=== PATIENT | male | born 1930 | race Caucasian/White ===

== ENCOUNTER 2018-09-24 17:29 | Inpatient (IN) | payer MEDICARE, OTHER ==
[~2018-09-24] VITALS: Ht 177.8 cm; Wt 68.0 kg
[2018-09-24] MEDS ORDERED: ASPIRIN81 MG PO (19:03)
[2018-09-24] MEDS ORDERED: CLARITIN 10 MG10 MG PO (19:04)
[2018-09-24] MEDS ORDERED: LEXAPRO5 MG PO (19:04)
[2018-09-24] MEDS ORDERED: NORVASC5 MG PO (19:05)
[2018-09-24] MEDS ORDERED: LISINOPRIL-HCT1 EAC4 PO (19:05)
[2018-09-24 19:08] LABS: BASOPHILS 0.4 % (0-2); EOSINOPHILS 1.3 % (0-7); HEMATOCRIT 42.3 % (42.0-54.0); HEMOGLOBIN 15.3 g/dL (13.5-17.5); IMMATURE GRANULOCYTES 0.4 % (0-5); LYMPHOCYTES 13.3 % (15-50); MCH 32.1 pg (26.0-34.0); MCHC 36.2 g/dL (31.0-37.0); MCV 88.7 fL (80.0-100.0); MEAN PLATELET VOLUME 9.6 fL (7.4-10.4); MONOCYTES 6.8 % (2-11); NEUTROPHILS 77.8 % (40-80); PLATELET COUNT 163 10x3/uL (130-400); RBC 4.77 10x6/uL (4.20-6.10); RDW 13.7 % (11.5-14.5); WBC 8.6 10x3/uL (4.8-10.8)
[2018-09-24 19:28] LABS: ALBUMIN 3.5 g/dL (3.4-5.0); ALKALINE PHOSPHATASE 75 U/L (46-116); ALT (SGPT) 24 U/L (10-68); BILIRUBIN - TOTAL 0.25 mg/dL (0.2-1.3); CALC OSMOLALITY 284 mosm/kg (275-300); CALCIUM 9.1 mg/dL (8.5-10.1); CARBON DIOXIDE 30.7 mmol/L (21.0-32.0); CHLORIDE - SERUM 102 mmol/L (98-107); CREATININE - SERUM 1.5 mg/dL (0.6-1.3); GLUCOSE 110 mg/dL (74-106); POTASSIUM - SERUM 4.1 mmol/L (3.5-5.1); SODIUM 139 mmol/L (136-145); UREA NITROGEN 29 mg/dL (7-18); eGFR NON AFRICAN AMERICAN 47 mL/min (90-120)
[2018-09-24 19:34] LABS: CKMB 1.2 U/L (0.0-3.6); CREATINE KINASE 61 UL (21-232); MAGNESIUM - SERUM 2.1 mg/dL (1.8-2.4); TROPONIN-I < 0.017 ng/mL (0.000-0.060)
[2018-09-24 19:51] LABS: APTT 29.6 SECONDS (22.8-39.4)
--- NOTE | 2018-09-24 20:15 | NUR ---
NURSE ATTEMPTED TO IN AND OUT CATH PT PER EDP, NO OUTPUT. PT SELF CATHS AT HOME. PT ATTEMPTED TO IN AND OUT CATH WITH A IN AND OUT CATH PROVIDED BY NURSE. WITH NO SUCCESS. BLADDER SCANNER USED TO SEE IF PT WAS RETAINING. SCANNER SHOWED 764 ML. EDP NOTIFED. STATES TO IN AND OUT PT AGAIN. PT STATES HE HAS ONE OF HIS HOME CATHS WITH HIM. PT USED HIS PERSONAL IN AND OUT CATH WITH SUCCESS. OUTPUT OF 650 ML.
[2018-09-24 20:24] LABS: INR 1.04 (0.85-1.17); PROTIME 13.1 SECONDS (11.6-15.0)
[2018-09-24] MEDS ORDERED: BAYER ASPIRIN325 MG PO (22:23)
[2018-09-25] VITALS (7 sets, daily range): BP systolic 129–171; BP diastolic 58–72; Ht 177.8 cm; Wt 68.0 kg
[2018-09-25 00:56] LABS: CKMB 1.4 U/L (0.0-3.6); CREATINE KINASE 75 UL (21-232); TROPONIN-I < 0.017 ng/mL (0.000-0.060)
--- NOTE | 2018-09-25 01:04 | NUR ---
PT UNABLE TO SLEEP. IN ROOM. PT CAME TO NURSES STATION AND IS SITTING DOWN. PT ASKING ABOUT CIGARETTE MACHINE. WANTING TO SMOKE A CIGG. EXPLAINED TO PT THAT HE IS NOT ALLOWED TO LEAVE HOSPITAL WHILE ADMITED. AND EXPLAINED POC AND NEED FOR OBSERVATION OF SYNCOPY. PT VERBALIZED UNDERSTANDING BUT IS STILL TALKING ABOUT WANTING TO FIND CIGGS. WILL CONTINUE TO EXPLAIN PT DANGERS OF LEAVING AND SMOKING. PT BEDLOW AND CALL LIGHT IN REACH. WILL CPOC
--- NOTE | 2018-09-25 03:36 | NUR ---
PT CAME OUT TO NURSES STATION AND SET AT CHAIR BY NURSES. PT STATES HOSPITAL IS [facility]. REORIENTED PT. PT LAUGHED EACH QUESTION NURSE ASKED REGARDING ORIENTATION. ASKED PT YEAR. PT STATES 2017, PT STATED 2019 EARLIER. REORIENTED PT AND PT SAID. I KNOW, I WAS JUST TESTING YOU. PT VERBALIZED THAT ADMIT IS FOR "PASSING OUT" AFTER PT SET UP FOR A WHILE PT WENT BACK TO ROOM, WHEN OPENING THE DOOR THE WAS ON HER WAY OUT TO FIND HIM. PT BACK INTO BED. NO S/S OF DISTRESS. BEDLOW AND CALL LIGHT IN REACH. WILL CPOC
--- NOTE | 2018-09-25 08:01 | NUR ---
ALERT AND ORIENTED. TELEMERTY SHOWS SB 53. LEFT AC SL. UP AB [place]. AT BEDSIDE. PT DOES SELF CATH HIMSELF. NO NEEDS VOICED. SR UP WITH CALL LIGHT IN REACH
[2018-09-25 08:10] LABS: CKMB 1.3 U/L (0.0-3.6); CREATINE KINASE 63 UL (21-232)
[2018-09-25 08:12] LABS: TROPONIN-I < 0.017 ng/mL (0.000-0.060)
--- NOTE | 2018-09-25 11:10 | NUR ---
I have reviewed this patient and I concur with the Shift Assessment completed by the Licensed Practical Nurse today this shift.
[2018-09-25 11:32] LABS: CREATINE KINASE 67 UL (21-232); TROPONIN-I < 0.017 ng/mL (0.000-0.060)
--- NOTE | 2018-09-25 11:35 | NUR ---
PT CONFUSED AT PRESENT TIME. AWAITING TO RETURN. NO NEEDS NOTED
[2018-09-25 16:25] LABS: APPEARANCE HAZY (CLEAR); BILIRUBIN NEGATIVE (NEGATIVE); COLOR YELLOW (YELLOW); GLUCOSE NEGATIVE (NEGATIVE); KETONE NEGATIVE (NEGATIVE); NITRITE NEGATIVE (NEGATIVE); PROTEIN 1+ mg/dL (NEGATIVE); UROBILINOGEN NORMAL (NORMAL)
[2018-09-25 16:26] LABS: WHITE CELLS - URINE >50 /hpf (0-5)
[2018-09-25 16:27] LABS: BACTERIA MANY /hpf (NONE SEEN); EPITHELIAL CELLS NSEEN /hpf (0-5); RED CELLS - URINE 0-5 /hpf (0-5)
--- NOTE | 2018-09-25 19:15 | NUR ---
RECEIVED REPORT, WILL ASSUME CARE OF PT, PT IS WALKING IN HALLWAY WITH , WILL CONTINUE PLAN OF CARE
--- NOTE | 2018-09-25 22:17 | NUR ---
PT IS RESTING, BED IS LOW, SRX2, CALL LIGHT IN REACH, AT BEDSIDE, WILL CONTINUE PLAN OF CARE
[2018-09-26] VITALS: BP 137/71; BP 163/73; BP 183/57
--- NOTE | 2018-09-26 01:12 | NUR ---
SLEEPING, AT BEDSIDE, CALL LIGHT IN REACH, WILL CONTINUE PLAN OF CARE
--- NOTE | 2018-09-26 02:18 | NUR ---
I have reviewed this patient and I concur with the Shift Assessment completed by the Licensed Practical Nurse today this shift.
[2018-09-26 04:00] VITALS: BP 123/54
[2018-09-26 05:03] LABS: BASOPHILS 0.2 % (0-2); HEMATOCRIT 39.4 % (42.0-54.0); HEMOGLOBIN 14.1 g/dL (13.5-17.5); IMMATURE GRANULOCYTES 0.2 % (0-5); LYMPHOCYTES 25.2 % (15-50); MCH 31.5 pg (26.0-34.0); MCHC 35.8 g/dL (31.0-37.0); MCV 87.9 fL (80.0-100.0); MEAN PLATELET VOLUME 9.7 fL (7.4-10.4); NEUTROPHILS 64.4 % (40-80); PLATELET COUNT 191 10x3/uL (130-400); RBC 4.48 10x6/uL (4.20-6.10); RDW 13.6 % (11.5-14.5); WBC 8.4 10x3/uL (4.8-10.8)
[2018-09-26 05:18] LABS: ANION GAP 14.1 mmol/L (8-16); CARBON DIOXIDE 24.9 mmol/L (21.0-32.0); CREATININE - SERUM 1.3 mg/dL (0.6-1.3)
--- NOTE | 2018-09-26 07:10 | NUR ---
PT WALKING IN HALLWAY. LED BACK TO ROOM BY NURSE. NO DISTRESS NOTED.
--- NOTE | 2018-09-26 08:00 | NUR ---
ASSESSMENT DONE. UPON MED PASS NO IV NOTED. STATED SHE DIDNT KNOW WHAT HAPENED TO IT BUT SAW THE CATHETER LAYING ON THE BED SIDE TABLE THIS MORNING WHEN SHE WOKE UP.
[2018-09-26 09:12] VITALS: BP 126/70
[2018-09-26 11:37] VITALS: BP 158/50
--- NOTE | 2018-09-26 12:36 | NUR ---
I have reviewed this patient and I concur with the Shift Assessment completed by the Licensed Practical Nurse today this shift.
--- NOTE | 2018-09-26 15:25 | NUR ---
DC GIVEN TO PT. PT DC VIA PERSONAL CAR.
--- NOTE | 2018-09-28 09:35 | MORECARE ---
CASE MANAGEMENT DISCHARGE SUMMARY PATIENT: ANTONETTE MORGAN UNIT: [id number] ADM DATE: 09/25/18 AGE: 87 : 32 SEX: M ROOM/BED: D.2120 AUTHOR: TIFFANY LOVE PHYSICIAN: REFERRING PHYSICIAN: BLANQUITA FERRARI MD DATE OF SERVICE: 09/28/18 Discharge Plan Patient Name: ANTONETTE MORGAN [facility] [facility] 1930 Planned Disposition: Home Anticipated Discharge Date: 09/26/18 Discharge Date: 09/26/2018 Expected LOS: 1 Initial Reviewer: [email or web address] Initial Review Date: 09/28/2018 Generated: 09/28/18 10:35 am Patient Name: ANTONETTE MORGAN Page [id number] at 0935 All edits/amendments must be made on the electronic document DICTATION DATE: 09/28/18934 SUPERVISOR BOATBUILDERS WOOD: PING 09/28/18 09 RPT#: [id number] DC DATE:09/26/18 STATUS: DIS IN [facility] [address] [facility] [place] [address] END OF REPORT
--- NOTE | 2018-09-28 15:06 | EC ---
PATIENT:ANTONETTE MORGAN DATE OF SERVICE: 09/24/18 SEX: M MEDICAL RECORD: [id number] DATE OF : 34 LOCATION:D.M2 D.212 AGE OF PATIENT: 87 ADMISSION DATE: 09/25/18 REFERRING PHYSICIAN: INTERPRETING PHYSICIAN: MISTY DODGE MD ECHOCARDIOGRAM REPORT ECHO CHARGES 4 ECHO COMPLETE Date: 09/25/18 CLINICAL DIAGNOSIS: SYNCOPE ECHOCARDIOGRAPHIC MEASUREMENTS (adult normal given) AC root (d.<3.7cm) 3.0 cm LV Septum d (<1.2 cm> 1.5 cm Valve Excursion 1.8 cm LV Septum (systole) 2.0 cm Left Atria (s.<4.0cm> 3.2 cm LVPW d(<1.2cm) 1.3 cm RV (d.<2.3cm) 2.6 cm LVPW (sytole) 1.8 cm LV diastole(<5.6CM) 6.5 cm MV E-F(>70mm/sec) cm LV systole 4.5 cm LVOT Diameter 1.8 cm MV exc.(>10mm) cm Est.ejection fraction (50-75%) % DOPPLER: LVIT cm/sec A 60.0 cm/sec E 42.0 cm/sec LA cm/sec RVSP 35.0 mmHg LVOT 113 cm/sec AOP1/2T m/s Asc. Ao 210 cm/sec RVOT 64.0 cm/sec RA cm/sec PA 102 cm/sec AV Gradient Peak 18.0 mmHg AV Mean 8.5 mmHg AV Area 1.1 cm MV Gradient Peak 5.5 mmHg MV Mean 1.4 mmHg MV Area cm COMMENTS: Network Technical Analyst: Gabriel GIBSONOE Human Services Supervisor: 3 Dr. Mcgraw TAPE# PACS Pericardial Effusion N DATE OF SERVICE: Adequate 2D, color flow, spectral Doppler, and M-Mode. LVH is present. LV internal dimension is normal. Wall motion is normal. EF is greater than or equal to 55%. Aortic valve sclerosis without stenosis on Doppler interrogation. The left atrium is normal at 3.2 cm. Mitral valve shows no prolapse. Trace MR. Right-sided chambers are grossly normal. Trace TR. TRANSINT:[id number] Voice Confirmation ID: [id number] DOCUMENT ID: [id number] ECHOCARDIOGRAM REPORT [id number] ANTONETTE MORGAN,MISTY Maddox MD at 1506 CC: [id number] DICTATION DATE: 09/25/18 1154 ACCOUNT ASSOCIATE: 09/25/18 1231 DIS IN 09/26/18 [facility] [address] [facility] [place] [address]
== END 2018-09-26 15:33 | disposition home or self-care (01) | DRG 312 ==
LOC: EDBD 17:29 → D.ER 17:29 → D.M2 19:24 → OBSVTIME 19:24 → D.M2 19:24
PROVIDERS: Emergency Medicine; Family Medicine; ADMIT Internal Medicine Nephrology; ATTEND Internal Medicine Nephrology
DX: R55 Syncope and collapse (principal); N17.9 Acute kidney failure, unspecified; F17.203 Nicotine dependence unspecified, with withdrawal; R00.1 Bradycardia, unspecified; R33.9 Retention of urine, unspecified; I10 Essential (primary) hypertension; F32.9 Major depressive disorder, single episode, unspecified; N40.0 Benign prostatic hyperplasia without lower urinary tract symptoms

== ENCOUNTER 2019-01-26 08:00 | Day surgery (SDC) | payer MEDICARE, OTHER ==
[~2019-01-26] VITALS: Ht 180.3 cm; Wt 65.3 kg
[~2019-01-26 08:00] MED LIST: ASPIRIN81 MG PO; BAYER ASPIRIN325 MG PO; CLARITIN 10 MG10 MG PO; LEXAPRO5 MG PO; LISINOPRIL-HCT1 EAC4 PO; NORVASC5 MG PO
[2019-01-26 09:01] LABS: ANION GAP 8.9 mmol/L (8-16); CALCIUM 9.1 mg/dL (8.5-10.1); CARBON DIOXIDE 31.3 mmol/L (21.0-32.0); CREATININE - SERUM 1.4 mg/dL (0.6-1.3); POTASSIUM - SERUM 4.2 mmol/L (3.5-5.1)
[2019-01-26 09:06] LABS: BASOPHILS 0.7 % (0-2); EOSINOPHILS 3.8 % (0-7); HEMATOCRIT 40.4 % (42.0-54.0); HEMOGLOBIN 13.9 g/dL (13.5-17.5); IMMATURE GRANULOCYTES 1.1 % (0-5); LYMPHOCYTES 18.9 % (15-50); MCH 33.4 pg (26.0-34.0); MCHC 34.4 g/dL (31.0-37.0); MCV 97.1 fL (80.0-100.0); MEAN PLATELET VOLUME 9.7 fL (7.4-10.4); MONOCYTES 7.8 % (2-11); NEUTROPHILS 67.7 % (40-80); RBC 4.16 10x6/uL (4.20-6.10); RDW 13.6 % (11.5-14.5)
[2019-01-26 09:38] LABS: PLATELET COUNT 292 10x3/uL (130-400)
[2019-01-26 10:13] VITALS: BP 122/62; Ht 180.3 cm; Wt 65.3 kg
[2019-01-26] MEDS ORDERED: HYDROCODON-ACE1 EA10 PO (11:54)
--- NOTE | 2019-01-26 16:46 | NUR ---
1640 DR. BISHOP REACHED VIA PHONE NOTIFIED OF FAINTINT EPISODE AND Gracie MULLINS RELEASE HOME WCM.
--- NOTE | 2019-01-26 16:52 | NUR ---
1650 ROOM CHECK, PT RESTING COMFORTABLE IN BED, AT SIDE, A/A STATES I AM GOING HOME.
--- NOTE | 2019-01-28 13:49 | OP ---
PATIENT NAME: ANTONETTE MORGAN MEDICAL RECORD: [id number] :34 LOCATION:[facility] ADMISSION DATE: SURGEON: PROSPER BISHOP MD DATE OF OPERATION: 01/26/2019 PREOPERATIVE DIAGNOSES: 1. Bilateral inguinal hernias. 2. Hypertension. POSTOPERATIVE DIAGNOSES: 1. Bilateral inguinal hernias. 2. Hypertension. PROCEDURE: Bilateral inguinal hernia repairs with medium PHS mesh. SURGEON: Prosper Bishop MD REPORT OF PROCEDURE: The patient's bilateral groins were prepped and draped in sterile fashion. We approached the right side first. An oblique incision was made above the inguinal ligament and electrocautery was used to dissect through the subcutaneous tissues to the external oblique fascia. This fascia was opened up to the external ring with electrocautery. The ilioinguinal nerve was found and high ligated. We elevated the spermatic cord and a Haven was placed around it. The patient had a small direct hernia defect. This was opened up and we freed up the preperitoneal space of Retzius. A medium PHS mesh was inserted and sutured down on all 4 sides using interrupted 0 Vicryl. We irrigated out the wound and assured there was no sign of any bleeding. The external oblique fascia was closed with running 2-0 Vicryl and the Shiloh's was closed with interrupted 3-0 Vicryl. A total of 8 mL of 1% lidocaine with epinephrine was infused into the tissues and the skin was closed with running subcutaneous 5-0 Monocryl. We approached the left side and again an oblique incision was made above the inguinal ligament. Electrocautery was used to dissect through the subcutaneous tissues to the external oblique fascia. This fascia was opened up to the external ring using electrocautery. The spermatic cord was elevated and a Haven was placed around it. Again, the ilioinguinal nerve was found and high ligated. An indirect hernia defect was found. This was freed up from the spermatic cord and pushed back down in the preperitoneal space. We then opened up the inguinal floor and opened the preperitoneal space of Retzius. A medium PHS mesh was inserted and sutured down on all 4 sides using interrupted 0 Vicryls. The wounds were then irrigated out with normal saline and then inspected for any bleeding. The external oblique fascia was closed with running 2-0 Vicryl, Shiloh's was closed with interrupted 3-0 Vicryl and the skin was closed with running subcutaneous 5-0 Monocryl. COMPLICATIONS: None. CONDITION: Stable. ANESTHESIA: General endotracheal and local. BLOOD LOSS: Minimal. TRANSINT:[id number] Voice Confirmation ID: [id number] DOCUMENT ID: [id number] OPERATIVE REPORT [id number] ANTONETTE MORGAN, PROSPER DAVID at 1349 CC: ZANE CASTANEDA MD and LINDA MANNING [id number] DICTATION DATE: 01/26/19 1200 INSULATION BOARD BACK TENDER: 01/26/19 1211 [facility] SDC 01/26/19 [facility] [address] [place] [address]
== END 2019-01-26 18:45 | disposition home or self-care (01) ==
LOC: D.OPS 08:00 → D.PAN 12:15 → D.OPS 12:15
PROVIDERS: ATTEND Surgery
DX: K40.20 Bilateral inguinal hernia, without obstruction or gangrene, not specified as recurrent (principal); I10 Essential (primary) hypertension

== ENCOUNTER 2019-07-23 04:56 | Emergency (ER) | payer MEDICARE, OTHER ==
[~2019-07-23] VITALS: Ht 180.3 cm; Wt 75.0 kg
[~2019-07-23 04:56] MED LIST changes: +HYDROCODON-ACE1 EA10 PO
[2019-07-23 04:59] VITALS: Ht 180.3 cm; Wt 75.0 kg
[2019-07-23] MEDS ORDERED: MACROBID100 MG PO (05:03)
[2019-07-23] MEDS ORDERED: AMOXICILLIN500 M1 PO (05:03)
[2019-07-23 05:25] LABS: BASOPHILS 0.3 % (0-2); EOSINOPHILS 2.4 % (0-7); HEMATOCRIT 44.2 % (42.0-54.0); IMMATURE GRANULOCYTES 0.3 % (0-5); LYMPHOCYTES 14.1 % (15-50); MCH 31.7 pg (26.0-34.0); MCHC 33.9 g/dL (31.0-37.0); MCV 93.4 fL (80.0-100.0); MONOCYTES 6.3 % (2-11); NEUTROPHILS 76.6 % (40-80); RBC 4.73 10x6/uL (4.20-6.10); RDW 13.8 % (11.5-14.5)
[2019-07-23 05:27] LABS: PLATELET COUNT 219 10x3/uL (130-400)
[2019-07-23 05:39] LABS: ANION GAP 15.9 mmol/L (8-16); CALCIUM 9.1 mg/dL (8.5-10.1); CARBON DIOXIDE 26.2 mmol/L (21.0-32.0); CREATININE - SERUM 2.2 mg/dL (0.6-1.3); POTASSIUM - SERUM 4.1 mmol/L (3.5-5.1)
[2019-07-23 05:52] LABS: BILIRUBIN NEGATIVE (NEGATIVE); GLUCOSE NEGATIVE (NEGATIVE); KETONE NEGATIVE (NEGATIVE); NITRITE POSITIVE (NEGATIVE); UROBILINOGEN NORMAL (NORMAL)
[2019-07-23 05:55] LABS: BACTERIA MANY /hpf (NEGATIVE); EPITHELIAL CELLS 0-5 /hpf (0-5); HYALINE CAST 0-5 /lpf (NONE SEEN); RED CELLS - URINE 0-5 /hpf (0-5)
[2019-07-23 06:01] LABS: UDS - AMPHET NEGATIVE QUAL (NEGATIVE); UDS - BARB NEGATIVE QUAL (NEGATIVE); UDS - BENZO NEGATIVE QUAL (NEGATIVE); UDS - COCAINE NEGATIVE QUAL (NEGATIVE); UDS - OPIATE NEGATIVE QUAL (NEGATIVE); UDS - PCP NEGATIVE QUAL (NEGATIVE); UDS - THC NEGATIVE QUAL (NEGATIVE)
[2019-07-23 06:06] LABS: ALBUMIN 3.6 g/dL (3.4-5.0); BILIRUBIN - TOTAL 0.2 mg/dL (0.2-1.3); MAGNESIUM - SERUM 2.1 mg/dL (1.8-2.4); PROTEIN - SERUM 7.6 g/dL (6.4-8.2); THYROID STIMULATING HORMONE 2.82 uIU/mL (0.36-3.74)
[2019-07-23 08:05] VITALS: BP 149/72
== END 2019-07-23 08:31 ==
LOC: D.ER 04:56
PROVIDERS: Family Medicine
DX: F03.91 Unspecified dementia, unspecified severity, with behavioral disturbance (principal); I10 Essential (primary) hypertension; I25.2 Old myocardial infarction

== ENCOUNTER 2019-07-23 07:37 | Inpatient (IN) | payer MEDICARE, OTHER ==
[~2019-07-23] VITALS: Ht 180.3 cm; Wt 69.2 kg
[~2019-07-23 07:37] MED LIST changes: +AMOXICILLIN500 M1 PO; +MACROBID100 MG PO
[2019-07-23 09:55] LABS: CHOL - HDL RATIO 4.9 ratio (2.3-4.9); LDL-HDL RATIO 3.2 ratio (1.5-3.5)
[2019-07-23 10:09] VITALS: BP 157/89
[2019-07-23 15:51] VITALS: BP 172/73; Ht 180.3 cm; Wt 69.2 kg
--- NOTE | 2019-07-23 17:14 | NUR ---
PT ARRIVED TO UNIT AT 0829 FROM [facility] ED. PT REPORTED TO HAVE GOTTEN AGGRESSIVE WITH AT HOME AND SHE CALLED [phone]. PT CURRENTLY BEING TREATED FOR A UTI. PT STARTED ANTIBIOTICS YESTERDAY PER THE INFORMATION. 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 VITALS SIGNS UPON ADMISSSION: T: 99.0, B/P: 172/73, P: 58, R: 16 AND 98%. WEIGHT OBTAINED: 148.6. BILATERAL BRUISES NOTED TO ARMS. SKIN OTHERWIISE CLEAR NOTED. HEART SOUNDS DISTANT. PT CAN ANSWER SOME QUESTIONS. PER CODE STATUS: DNR. NURSE REQUESTED PAPERWORK FOR CHART. CALLED AND GAVE UPDATE MED LIST TO NURSE. AI TOLD NURSE HE DOES USE AN INHALER FOR COPD. [facility] USED AND OTHER MEDICATION FROM [employer] [facility]. SELF CATHS SIZE ARE 16 FR AND 40 CM. PT HAS BEEN PLESANT WITH STAFF AT THIS TIME. NO AGGRESSION NOTED. BILATERAL LUNG SOUNDS CLEAR. WILL CONT PLAN OF CARE.
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
--- NOTE | 2019-07-23 18:34 | NUR ---
The patient asked this nurse "How long am I gonna have to be here?" Explained to him that patients are here 7-14 days. He said "Well, why am I here, I wouldn't be here if it wasn't for my ." He is unhappy being here and does not believe he needs to be here.
[2019-07-23 20:11] VITALS: BP 121/41
--- NOTE | 2019-07-23 23:03 | NUR ---
PATIENT IS CONFUSED, HAS TO BE SHOWN WHERE HIS ROOM IS OVER AND OVER, NO AGITATION OR AGRESSION NOTED, COMPLIANT WITH MEDS, CAN MAKE NEEDS KNOWN, HE SELF CATHS. CAN MAKE ALL NEEDS KNOWN. WILL FOLLOW POC
[2019-07-24 07:30] LABS: CHOL - HDL RATIO 4.4 ratio (2.3-4.9); LDL-HDL RATIO 2.9 ratio (1.5-3.5); THYROID STIMULATING HORMONE 0.94 uIU/mL (0.36-3.74)
[2019-07-24 10:35] VITALS: BP 124/62
--- NOTE | 2019-07-24 11:23 | NUR ---
The patient is confused, he has asked staff at different times when he will get to leave. Explained to him that he will be here a week to 14 days. He said "That's dumb, why am I even here." Explained to him that he is having some problems with his memory. He said "Well, don't you, everyone does." Provide prescribed meds. The patient is compliant with meds. He has poor insight into his situation, he has poor short term memory recall. He is beginning to get agitated. Will monitor mood and behavior. Continue POC.
--- NOTE | 2019-07-24 11:36 | NUR ---
PT HAS ASKED STAFF 3X MORE ABOUT WHEN HE COULD AND WHY HIS PLACED HIM HERE. NURSE ATTEMPTED TO EXPLAIN THAT HE COULD NOT LEAVE AT THIS TIME. THE DOCTOR HAS TO RELEASE HIM. DID NOT VERBALIZE UNDERSTANDING.
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
--- NOTE | 2019-07-24 13:16 | NUR ---
The patient is making bizarre statements saying "Well who has the authority to keep me here?" Explain to him over and over his who has POA and the Dr. He then says "Oh, well my must be laying up under the Dr." He asks the same question over and over.
--- NOTE | 2019-07-24 13:35 | NUR ---
The patient continues to pace and question me and get in my personal space. He is used to bullying as evidenced by how close he gets and how he raises his voice as he approaches staff. He is not redirecatable, offering fluids, offering snacks.
--- NOTE | 2019-07-24 13:40 | NUR ---
Contacted Dr. Shin about the patient's behavior and he ordered Geodon 10 mg IM q 2 hours prn.
--- NOTE | 2019-07-24 14:12 | NUR ---
After staff told the patient it was nap hour this patient walked behind this nurse and said "It's time for me to go home." Did not make a statement to his request and continued working, he walked away.
--- NOTE | 2019-07-24 14:32 | NUR ---
prn medication not effective at this time.
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
--- NOTE | 2019-07-24 14:51 | NUR ---
Staff released CPI hold and patient walked into the day room and he sat down. He is conversing with staff. He is asking for a cigarette now and wants to go outside. Mariluz Hale RN is explaining to him that he can't go out and he is not comprehending, he then begins to question her about leaving. Mariluz walks away and he walked into the dining room and lay his head down on the table.
--- NOTE | 2019-07-24 15:50 | NUR ---
The patient is sleeping soundly, easy unlabored respirations eyes closed. He has his head down on the table.
--- NOTE | 2019-07-24 16:52 | NUR ---
The patient ambulated himself into the day room and lay on the couch. Eyes closed, resting easily.
[2019-07-24 20:00] VITALS: BP 147/58
--- NOTE | 2019-07-24 21:59 | NUR ---
PATIENT IS VERY CONFUSED, NO AGITATION OR AGGRESSION NOTED THIS EVENING, PATIENT SLEEPING ON COUCH IN DAYROOM. COMPLIANT WITH MEDS. WILL FOLLOW POC
[2019-07-25 08:47] VITALS: BP 189/59
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
--- NOTE | 2019-07-25 19:17 | NUR ---
RECEIVED IN DAYROOM. SITTING IN A WHEELCHAIR WITH MHT AT HIS SIDE. CALM AND COOPERATIVE WITH CARE AND ASSESSMENT. NO SIGNS OF AGGRESSION. REDIRECT AND REORIENT NEEDED. CONTINUES TO SIT CALMLY IN DAYROOM. CONTINUE PLAN OF CARE.
[2019-07-25 19:24] VITALS: BP 157/72
[2019-07-26 06:35] LABS: BASOPHILS 0.7 % (0-2); EOSINOPHILS 3.4 % (0-7); HEMATOCRIT 41.1 % (42.0-54.0); HEMOGLOBIN 13.8 g/dL (13.5-17.5); IMMATURE GRANULOCYTES 0.2 % (0-5); LYMPHOCYTES 28.1 % (15-50); MCH 31.1 pg (26.0-34.0); MCHC 33.6 g/dL (31.0-37.0); MCV 92.6 fL (80.0-100.0); MEAN PLATELET VOLUME 9.6 fL (7.4-10.4); MONOCYTES 9.5 % (2-11); NEUTROPHILS 58.1 % (40-80); PLATELET COUNT 186 10x3/uL (130-400); RBC 4.44 10x6/uL (4.20-6.10); RDW 13.4 % (11.5-14.5); WBC 5.8 10x3/uL (4.8-10.8)
[2019-07-26 06:37] LABS: ANION GAP 9.3 mmol/L (8-16); CALCIUM 8.8 mg/dL (8.5-10.1); CARBON DIOXIDE 27.4 mmol/L (21.0-32.0); CREATININE - SERUM 1.6 mg/dL (0.6-1.3); POTASSIUM - SERUM 3.7 mmol/L (3.5-5.1)
[2019-07-26 08:46] VITALS: BP 141/41
--- NOTE | 2019-07-26 12:00 | NUR ---
RECEIVED IN HALLWAY OUTSIDE OF NURSES STATION. CALM AND COOPERATIVE WITH CARE AND ASSESSMENT. NO AGGRESSIVE BEHAVIOR. FIXATED ON HIS HAVING AN AFFAIR WITH THE DOCTOR. EXIT SEEKING. REDIRECT AND REDORIENT NEEDED. EATING LUNCH AT THIS TIME. CONTINUE PLAN OF CARE.
--- NOTE | 2019-07-26 21:13 | NUR ---
B.) PT IS ALERT AND ORIENTED TO SELF ONLY. HE IS SLIGHTLY AGGITATED THAT HE CANNOT LEAVE. HE IS EXIT SEEKING AND REMOVED HIS RA ALARM FROM HIS BED. HE IS ABLE TO AMBULATE WITHOUT ASSIST. HE IS OBSERVED SOCIALIZING WITH PEERS. I.) PROVIDED PM MEDICATIONS. REDIRECT OFTEN. R.) COMPLIANT WITH ALL MEDICATIONS. DIFFICULT TO REDIRECT AT TIMES. P.) CONTINUE TO MONITOR.
[2019-07-26 21:35] VITALS: BP 135/64
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
--- NOTE | 2019-07-26 22:33 | NUR ---
PT RESTING CALMLY IN BED. NO DISTRESS NOTED. WILL CONTINUE TO MONITOR.
[2019-07-27 06:54] LABS: ANION GAP 12.7 mmol/L (8-16); CALCIUM 8.4 mg/dL (8.5-10.1); CARBON DIOXIDE 25.9 mmol/L (21.0-32.0); CREATININE - SERUM 1.5 mg/dL (0.6-1.3); POTASSIUM - SERUM 3.6 mmol/L (3.5-5.1)
[2019-07-27 07:53] VITALS: BP 180/77
--- NOTE | 2019-07-27 08:30 | NUR ---
RECEIVED IN HALLWAY OUTSIDE OF NURSES STATION. CALM AND COOPERATIVE WITH CARE AND ASSESSMENT. NO AGGRESSION. NO AGITATION THIS MORNING. REDIRECT AND REORIENT NEEDED. EATING BREAKFAST AT THIS TIME. CONTINUE PLAN OF CARE.
[2019-07-27 11:17] VITALS: BP 154/71
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
[2019-07-27 15:23] VITALS: BP 151/67
[2019-07-27 19:30] VITALS: BP 160/80
--- NOTE | 2019-07-27 19:37 | NUR ---
RECEIVED IN BEDROOM. RESTING IN BED WITH EYES CLOSED. CALM AND COOPERATIVE WITH CARE AND ASSESSMENT. NO SIGNS OF AGGRESSION. REDIRECT AND REORIENT NEEDED. CONTINUES TO REST EYES CLOSED. CONTINUE PLAN OF CARE.
--- NOTE | 2019-07-27 23:39 | NUR ---
PATIENT ATTEMPTS TO WALK WITHOUT ASSIST. MOVED TO HALLWAY OUTSIDE OF NURSES STATION TO MONITOR.
[2019-07-28 07:46] VITALS: BP 149/78
[2019-07-28 08:00] VITALS: BP 119/85
--- NOTE | 2019-07-28 11:20 | PN ---
PATIENT:ANTONETTE MORGAN MEDICAL RECORD: [id number] LOCATION:[facility] ADMISSION DATE: 07/23/19 PROGRESS NOTE DATE OF SERVICE: 07/27/2019 SUBJECTIVE: The patient's case was discussed with staff. He has no new complaint. OBJECTIVE: The patient is in good behavioral control. He has poor insight about his situation. ASSESSMENT: Dementia. PLAN: Current medicines have been reviewed and will be maintained. I anticipate he can be transitioned out of the hospital soon if this level of improvement continues. TRANSINT:[id number] Voice Confirmation ID: [id number] DOCUMENT ID: [id number] MERLIN SAWYER MD at 1120 CC: [id number] DICTATION DATE: 07/27/19 1422 LIME MIXER: 07/27/19 1530 ADM IN [facility] [address] [place] [address]
--- NOTE | 2019-07-28 11:30 | NUR ---
PT PACING IN HALLWAY AT THIS TIME. PT IS CONFUSED AND ATTEMPTING TO GO HOME. PT IS ORIENTED TO SELF ONLY AT THIS TIME. REDIRECT AND REORIENT NEEDED. PT IS COMPLIANT WITH MEDS, VITALS AND ASSESSMENTS. PT AMBULATES AND SELF CATHS. PT CAN GET AGITATED WHEN WANTING TO LEAVE. REDIRECT. WILL CONT PLAN OF CAARE.
[2019-07-28 20:41] VITALS: BP 180/78
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
--- NOTE | 2019-07-29 14:02 | NUR ---
Nutrition Follow-up: PO intake fluctuates (100% x 3 yesterday but 0% x 3 the day before). Diet: Regular PO intake: 51% avg x 9 meals Wt: 150# (07/24); 148# (07/22) Last BM: 07/27 Labs reviewed Meds noted: Miralax -Encourage PO intake and honor food preferences. -Offer nutrition supplements. -Monitor wt. -RD following.
--- NOTE | 2019-07-29 14:05 | PN ---
PATIENT:ANTONETTE MORGAN MEDICAL RECORD: [id number] LOCATION:[facility] ADMISSION DATE: 07/23/19 PROGRESS NOTE DATE OF SERVICE: 07/28/2019 SUBJECTIVE: The patient's case was discussed with staff. He has no new complaint. OBJECTIVE: The patient has been somewhat restless, but not rising to the level of requiring p.r.n. medication. He is generally tolerating his medications well. He is significantly and seriously disorganized. ASSESSMENT: Dementia. PLAN: The patient's Aricept is going to be increased to 10 mg at bedtime. It is my understanding that a residential placement in a behavioral unit is being sought. This is appropriate given his circumstances. TRANSINT:[id number] Voice Confirmation ID: [id number] DOCUMENT ID: [id number] MERLIN SAWYER MD at 1405 CC: [id number] DICTATION DATE: 07/28/19 1154 ATMOSPHERIC PHYSICIST: 07/28/19 1641 ADM IN [facility] [address] [place] [address]
--- NOTE | 2019-07-29 15:00 | NUR ---
PT SITTING AND TALKING WITH PEER. PT CAN MAKE NEEDS KNOWN. PT IS CONFUSED AND ORIENTED TO SELF ONLY. PT IS ORIENTED AT TIMES. PT AMBULATES AND SELF CATHS. PT HAS HAD NO BEHAVIORS. COMPLIANT WITH MEDS, VITALS AND ASSESSMENTS. REDIRECT AND REORIENT NEEDED. WILL CONT PLAN OF CARE.
--- NOTE | 2019-07-29 22:44 | NUR ---
B)Patient is alert and oriented to self, very confused, intrusive with staff, wanting his car keys, resistant to redirection, wanders the halls at times, I) Administered scheduled medications as ordered, PRN Ativan 0.5 mg PO given for anxiety at 22:22, monitored for safety R) Mediation compliant, confrontational with staff at times, P) Continue plan of care.
[2019-07-30 11:05] VITALS: BP 162/70
--- NOTE | 2019-07-30 15:57 | NUR ---
PT SITTING AT TABLE. PT IS CONFUSED AND DISORIENTED. ALERT TO SELF ONLY. PREVIOUS SHIFT REPORTED THAT PT WAS DEMANDING TO GET KEYS AND GO HOME. PT HAS NOT HAD ANY BEHAVIORS THIS SHIFT. PT IS FRIENDLY WITH STAFF AND PEERS. COMPLIANT WITH MEDS, VITALS AND ASSESSMENT. PT CAN MAKE SOME NEEDS KNOW. PT AMBULATES WITHOUT ASSISTANCE. WILL CONT PLAN OF CARE.
--- NOTE | 2019-07-30 18:25 | NUR ---
PT WAS ON THE PHONE WITH STATING "HE WAS GOING TO CALL THE POLICE IF SHE DID NOT BRIGN HIM HIS CAR AND THAT HE WOULD SEEK LEGAL ACTION." NURSE INTERVENTED IN CONVERSION STATING THAT HE COULD NOT TALK TO HIS THAT WAY AND THAT WAS BEING RUDE. PT HUNG UP ON HIS . HE LOOKED AT THIS NURSE STATING "I WISH I COULD HURT YOU." AND WALKED OFF. NURSE ATTEMPTED TO REDIRECT PT. UNABLE TO DO SO. HE WAS STATING "WHY CANT I GO HOME? WHY ARE YOU HOLDING ME HERE?" AITVAN 0.5 MG IM ADMINISTERED PER DR. SAWYER ORDER. PT TOLERATED WELL. WILL CONT TO REASSESS.
[2019-07-30 20:00] VITALS: BP 137/66
--- NOTE | 2019-07-30 21:02 | NUR ---
B.) PT IS ALERT AND ORIENTED TO SELF ONLY. HE HAS POOR INSIGHT INTO HIS SITUATION. HE KEEPS ASKING FOR US TO LET HIM GO GET HIS CAR FROM THE PARKING LOT. HE IS RECEIVED OUTSIDE THE NURSES DESK. HE IS OBSERVED SOCIALIZING WITH PEERS. HE IS VERY LABILE IN HIS MOODS WITH STAFF. I.) PROVIDED PM MEDICATIONS. REDIRECT OFTEN. R.) COMPLIANT WITH ALL MEDICATIONS. DIFFICULT TO REDIRECT. P.) WILL CONTINUE TO MONITOR.
--- NOTE | 2019-07-30 22:51 | NUR ---
PT AGGRESSIVE WITH STAFF AND EXIT SEEKING. PT IS THREATENING TO GET VIOLENT WITH STAFF IF WE DONT LET HIM LEAVE. PT RESTLESS AND PACING THE HALLS. PRN ATIVAN 0.5MG AND 2 MG HALDOL IM WILL CONTINUE TO MONITOR.
--- NOTE | 2019-07-30 23:34 | NUR ---
PT IS RESTING CALMLY IN BED WITH EYES CLOSED. NO DISTRESS NOTED. WILL CONTINUE TO MONITOR.
[2019-07-31 08:07] VITALS: BP 187/70
[2019-07-31 10:13] VITALS: BP 187/70
--- NOTE | 2019-07-31 12:45 | NUR ---
The patient has been sleepy for the morning. He awakens to take his medication then he goes back to sleep. He has not shown aggression this am. He needs to be monitored as he has a tendency to get agitated. The patient is using a gerichair as he is too unsteady to ambulate this am. Provide prescribed meds. The patient is compliant with meds. Continue POC.
--- NOTE | 2019-07-31 20:54 | NUR ---
B.) PT IS ALERT AND ORIENTED TO SELF ONLY. HE IS RECEIVED IN HIS ROOM. HE IS SLEEPY TODAY AND SELF ISOLATING. HE IS CALM AND COOPERATIVE WITH STAFF AT THIS TIME. HE DENIES ANY WANTS OR NEEDS. I.) PROVIDED PM MEDICATIONS PRESCRIBED. REDIRECT OFTEN. R.) COMPLIANT WITH ALL MEDICATIONS. EASY TO REDIRECT. P.) WILL CONTINUE TO MONITOR.
[2019-08-01 05:17] VITALS: BP 177/68
[2019-08-01 08:24] VITALS: BP 137/64
--- NOTE | 2019-08-01 11:08 | NUR ---
The patient is awake and alert. He ambulates independently. He is getting antsy to go home he spoke to Dr. Keating and he said "Doc, I just wanna go home, I have a car out there, I just really wanna go home." The patient is bothered by one of the other patient's yelling and he tried to talk to her, but that did not help then he asked her "Please stop yelling." Provide prescribed meds. The patient is compliant with meds. Continue POC.
--- NOTE | 2019-08-01 11:23 | NUR ---
The patient is beginning to escalate he discussing that he does not need to be here and that he is being held against his will. There is no reasoning with him. Offered him snacks so that he will relax a little. He is coloring with another patient and they are talking about home and that is escalating his behavior. Ativan 0.5 mg po provided.
--- NOTE | 2019-08-01 12:10 | NUR ---
The patient is relaxed a little he went and sat by the window in the dining room.
--- NOTE | 2019-08-01 14:52 | NUR ---
The patient is talking about how sorry his is and calling her ugly names, tried to change the subject. Keily Price [facility] held a group with the patients and this is not helping. Ativan 0.5 mg po provided.
--- NOTE | 2019-08-01 15:50 | NUR ---
The patient is calmer and he has asked staff for a cath tip to self cath. So he went to his room and he urinated and then he lay on his bed.
[2019-08-01 18:55] VITALS: BP 120/65
--- NOTE | 2019-08-01 19:04 | NUR ---
RECEIVED STANDING AT NURSES STATION, TALKING WITH THIS NURSES. CALM AND COOPERATIVE WITH CARE AND ASSESSMENT. NO SIGNS OF AGGRESSION. REDIRECT AND REORIENT NEEDED. WALKING ABOUT IN HALLWAYS. INCREASING ANXIETY. WANTING TO LEAVE UNIT. CONTINUE PLAN OF CARE.
[2019-08-02 08:29] VITALS: BP 178/78
--- NOTE | 2019-08-02 12:00 | NUR ---
RECEIVED IN HALLWAY OUTSIDE OF NURSES STATION. CALM AND COOPERATIVE WITH CARE AND ASSESSMENT. PLEASANTLY CONFUSED. NO AGGRESSION. REDIRECT AND REORIENT NEEDED. EATING AT THIS TIME. CONTINUE PLAN OF CARE.
--- NOTE | 2019-08-02 13:26 | PN ---
PATIENT:ANTONETTE MORGAN MEDICAL RECORD: [id number] LOCATION:[facility] ADMISSION DATE: 07/23/19 PROGRESS NOTE DATE OF SERVICE: 07/29/2019 SUBJECTIVE: The patient's case was discussed with staff. He has no new complaint. OBJECTIVE: The patient is in good behavioral control with limited insight about his situation. He generally tolerates his medicines well. ASSESSMENT: Dementia. PLAN: Current medicines have been reviewed. I anticipate he can be transitioned out of the hospital soon if this level of improvement continues. [facility] him. TRANSINT:[id number] Voice Confirmation ID: [id number] DOCUMENT ID: [id number] MERLIN SAWYER MD at 1326 CC: [id number] DICTATION DATE: 07/29/19 1525 INSPECTOR AIR CARRIER: 07/29/19 1530 ADM IN [id number] [place] [address]
[2019-08-02 19:17] VITALS: BP 165/54
--- NOTE | 2019-08-02 19:23 | NUR ---
RECEIVED IN DAYROOM. SITTING IN A CHAIR WITH PEERS AT HIS SIDE. CALM AND COOPERATIVE WITH CARE AND ASSESSMENT. NO SIGNS OF AGGRESSION. REDIRECT AND REORIENT NEEDED. CONTINUES TO SIT QUIETLY IN DAYROOM. CONTINUE PLAN OF CARE.
--- NOTE | 2019-08-02 22:05 | NUR ---
PATIENT STARTING TO EXIT SEEK. INCREASING ANXIETY. STATES HE IS GOING TO BREAK DOWN THE DOOR IF WE DON'T LET HIM OUT. ATTEMPT TO REDIRECT AND REORIENT.
--- NOTE | 2019-08-02 22:50 | NUR ---
CONTINUES TO EXIT SEEK. NOTED ANXIETY. BECOMES AGITATED WITH REDIRECTION.
[2019-08-03 07:59] VITALS: BP 168/60
--- NOTE | 2019-08-03 10:28 | PN ---
PATIENT:ANTONETTE MORGAN MEDICAL RECORD: [id number] LOCATION:[facility] ADMISSION DATE: 07/23/19 PROGRESS NOTE DATE OF SERVICE: 08/02/2019 SUBJECTIVE: The patient's case was discussed with staff. He has no new complaint. OBJECTIVE: The patient is in good behavioral control, but difficult to redirect. He repeatedly asks the same questions, which is of course consistent with his dementia. He insists that his is a despicable person who is just simply telling all sorts of lies about him. He is clearly very angry with her. ASSESSMENT: Dementia. PLAN: The is looking for long-term care facilities for him. He is going to need a locked unit because of his behaviors. TRANSINT:[id number] Voice Confirmation ID: [id number] DOCUMENT ID: [id number] MERLIN SAWYER MD at 1028 CC: [id number] DICTATION DATE: 08/02/19 1535 SOCIAL MEDIA EDITOR: 08/02/19 2325 ADM IN [address] [place] [address]
--- NOTE | 2019-08-03 11:16 | NUR ---
RECEIVED IN HALLWAY OUTSIDE OF NURSES STATION. CALM AND COOPERATIVE WITH CARE AND ASSESSMENT. NO BEHAVIOR ISSUES. REDRIECT AND REORIENT NEEDED. PARTICIPATING IN GROUP AT THIS TIME. CONTINUE PLAN OF CARE.
--- NOTE | 2019-08-03 19:59 | NUR ---
RECEIVED IN DAYROOM. SITTING IN A CHAIR WITH PEERS AT HIS SIDE. CALM AND COOPERATIVE WITH CARE AND ASSESSMENT. NO SIGNS OF AGGRESSION. REDIRECT AND REORIENT NEEDED. WALKING ABOUT UNIT IN BED AREA AT THIS TIME. CONTINUE PLAN OF CARE.
[2019-08-03 21:00] VITALS: BP 142/62
[2019-08-04 09:04] VITALS: BP 155/85
--- NOTE | 2019-08-04 09:39 | PN ---
PATIENT:ANTONETTE MORGAN MEDICAL RECORD: [id number] LOCATION:[facility] ADMISSION DATE: 07/23/19 PROGRESS NOTE DATE OF SERVICE: 08/03/2019 SUBJECTIVE: The patient's case was discussed with staff. He has no new complaint. OBJECTIVE: The patient has been exit seeking and agitated with staff. He is not easily redirectable. He is severely impaired cognitively and it is difficult for him to explain his source of anxiety. ASSESSMENT: Dementia. PLAN: The patient is not manageable in a long-term care facility at this point given his behavior. Indeed, I suspect his behavior would be even worse if he were in a situation that was less structured and supervised. At this point, I have reviewed his medications and I am going to discontinue his Trilafon and will try a different antipsychotic medication to address his behavior. I am going to place him on Geodon at a dose of 20 mg at bedtime. TRANSINT:[id number] Voice Confirmation ID: [id number] DOCUMENT ID: [id number] MERLIN SAWYER MD at 0939 CC: [id number] DICTATION DATE: 08/03/19 1310 MANAGER TECHNICAL: 08/03/19 1748 ADM IN [id number] [place] [address]
--- NOTE | 2019-08-04 11:18 | NUR ---
CHRIS CONTACTED TO DISCUSS DISCHARGE PLANNING. SHE IS WORKING OUT FINANCIALS WITH [facility] TODAY. CHRIS REPORTED PT IS READY TO DISCHARGE. AI VERBALIZED UNDERSTANDING OF DISCUSSION
--- NOTE | 2019-08-04 12:00 | NUR ---
RECEIVED IN HALLWAY OUTSIDE OF NURSES STATION. CALM AND COOPERATIVE WITH CARE AND ASSESSMENT. NO AGGRESSION. NO AGITATION. REDIRECT AND REORIENT NEEDED. EATING LUNCH AT THIS TIME. CONTINUE PLAN OF CARE.
[2019-08-04 20:38] VITALS: BP 101/62
--- NOTE | 2019-08-04 20:50 | NUR ---
B.) PT IS ALERT AND ORIENTED TO SELF. HE HAS POOR INSIGHT INTO HIS SITUATION. HE IS OBSERVED SOCIALIZING WITH PEERS. HE IS INTRUSIVE WITH OTHER PT CARE. HE STATES "I WANT TO LEAVE, I LEFT MY CAR OUTSIDE SO I CAN GO." I.) PROVIDED PM MEDICATIONS. REDIRECT OFTEN. R.) COMPLIANT WITH ALL MEDICATIONS. DIFFICULT TO REDIRECT AT TIMES. F P.) WILL CONTINUE TO MONITOR.
--- NOTE | 2019-08-05 07:45 | NUR ---
REC'D PT SITTING IN CHAIR SOCIALZING WITH PEERS AT THIS TIME. ALERT TO SELF ONLY AND CONFUSED. PT HAS POOR INSIGHT TO SITUATION. PT CAN MAKE SOME NEEDS KNOWN. PT COMPLIANT WITH MEDS, VITALS AND ASSESSMENTS. PREVIOUS SHIFT REPORTED PT HAD NO AGGRESSION BUT COULD BE ARGUEMENTATIVE AT TIMES. PT AMBULATES REQUIRES MINIMAL ASSISTANCE WITH ADLS. WILL CONT PLAN OF CARE.
[2019-08-05 08:56] VITALS: BP 152/70
--- NOTE | 2019-08-05 13:01 | PN ---
PATIENT:ANTONETTE MORGAN MEDICAL RECORD: [id number] LOCATION:[facility] ADMISSION DATE: 07/23/19 PROGRESS NOTE DATE OF SERVICE: 08/04/2019 SUBJECTIVE: The patient's case was discussed with staff. He has no new complaint. OBJECTIVE: The patient is partially oriented. He has limited insight about his situation. He has not been aggressive. ASSESSMENT: Dementia. PLAN: Current medicines have been reviewed and will be maintained. His long-term prognosis is guarded. I anticipate he can be transitioned out of the hospital as soon as jail placement is arranged. TRANSINT:[id number] Voice Confirmation ID: [id number] DOCUMENT ID: [id number] MERLIN SAWYER MD at 1301 CC: [id number] DICTATION DATE: 08/04/19 165 BED OPERATOR: 08/05/19 0043 ADM IN [facility] [address] [place] [address]
--- NOTE | 2019-08-05 14:38 | NUR ---
Nutrition Follow-up: PO intake somewhat improving. Ate 50-75% of meals yesterday. Diet: Regular PO intake: 58% avg x 9 meals Wt: 152# (07/31); 150# (07/24); 148# (07/22) Last BM: 08/04 per chart No new labs Meds noted: Senokot, Miralax -Encourage PO intake and honor food preferences. -Offer nutrition supplements. -Monitor wt. -RD following.
[2019-08-05 19:32] VITALS: BP 137/71
--- NOTE | 2019-08-05 21:00 | NUR ---
B.) PT IS ALERT AND ORIENTED TO SELF ONLY. HE IS OBSERVED SOICALIZING WITH PEERS. HE IS OVERLY FRIENDLY WITH TWO OTHER PEERS WALKING THE HALLS HOLDING HANDS. HE IS INTRUSIVE WITH OTHER PTS CARE. HE IS ABLE TO VOICE NEEDS AND WANTS. I.) PROVIDED PM MEDICATIONS PRESCRIBED. REDIRECT OFTEN. R.) COMPLIANT WITH ALL MEDICATIONS. DIFFICULT TO REDIRECT AT TIMES. P.) WILL CONTINUE TO MONITOR.
--- NOTE | 2019-08-06 08:10 | NUR ---
The patient is awake and he is sitting in the hallway. He has not shown any aggression this am. He is confused as he said "I don't know how I got here." He has poor insight into his situation. Provide prescribed meds. The patient is compliant with meds. Continue POC.
[2019-08-06 08:41] VITALS: BP 190/94
--- NOTE | 2019-08-06 14:24 | NUR ---
SPOKE TO [facility] AND THEY HAVE ACCEPTED PT. THEY ARE WAITING TO CLEAR FINANCIAL PROCESS WITH .
[2019-08-06 19:49] VITALS: BP 170/65
--- NOTE | 2019-08-06 20:23 | NUR ---
PATIENT IS CONFUSED, FOREGETFUL, COMPLIANT WITH MEDS, HE IS "FRIENDLY" WITH THE FEMALES ON THE UNIT. CAN BECOME ARGUMENTATIVE QUICKLY. CAN MAKE ALL NEEDS KNOWN, COMPLIANT WITH MEDS. WILL FOLLOW POC
[2019-08-07 07:45] VITALS: BP 152/68
--- NOTE | 2019-08-07 11:12 | NUR ---
The patient is calm this am, he is flirtatious with a couple of the other female patient's. He ambulates independently. One of the other patient's at times yells out and this patient will yell out "Shut up." He is isolating in the dining room to sit by the window at this time. He has not shown any aggression today. Provide prescribed meds. The patient is compliant with meds. Continue POC.
[2019-08-07 13:12] VITALS: BP 132/45
--- NOTE | 2019-08-07 13:17 | NUR ---
pt blood pressure: 132/45, p: 56. held hydralazine 25 mg. will cont to monitor.
[2019-08-07 19:32] VITALS: BP 139/45
--- NOTE | 2019-08-07 23:17 | NUR ---
B)RECEIVED PATIENT SITTING IN THE DAYROOM. INTERACTS WITH STAFF AND PEERS. CONFUSED AND DISORIENTED. RELATES HE IS FEELING UPTIGHT BECAUSE HE IS STUCK IN HERE. REALTES HIS PUT HIM IN HERE BECAUSE SHE THOUGHT HE WAS FORGETTING TO MUCH. RELATES SHE WAS SUPPOSE TO COME AND PICK HIM UP AND SHE DIDN'T COME BACK. RELATES HE WILL NEVER BELIEVE HER AND AGAIN AND WILL PROBABLY DIVORCE HER. ALREADY IS TALKING WITH A FEMALE PEER AND HAD BEEN OBSERVED HOLDING HER HAND. PATIENT REDIRECTED AND WAS TOLD NO TOUCHING IS ALLOWED BETWEEN PATIENTS. PT WAS WANDERING INTO THE ROOM AND OF ANOTHER PATIENT AND BECAME AGGRESSIVE WHEN REDIRECTED. I)ADMININSTER MEDS AND MONITOR COMPLIANCE. REORIENT NEEDED. R)MED COMPLIANT. POOR REORIENTATION DUE TO IMPAIRED ABILITY TO RETAIN INFORMATION. P)CONTINUE POC AND PROVED SAFE ENVIRONMENT.
[2019-08-08 08:31] VITALS: BP 142/64
--- NOTE | 2019-08-08 12:00 | NUR ---
RECEIVED IN HALLWAY OUTSIDE OF NURSES STATION. CALM AND COOPERATIVE WITH CARE AND ASSESSMENT. NO AGGRESSION. REDIRECT AND REORIENT NEEDED. EATING LUNCH AT THIS TIME. CONTINUE PLAN OF CARE.
--- NOTE | 2019-08-08 16:26 | PN ---
PATIENT:ANTONETTE MORGAN MEDICAL RECORD: [id number] LOCATION:[facility] ADMISSION DATE: 07/23/19 PROGRESS NOTE DATE OF SERVICE: 08/05/2019 SUBJECTIVE: The patient's case was discussed with staff. He has no new complaint. OBJECTIVE: The patient is in good behavioral control with limited insight about his situation. He is tolerating his medicines well. ASSESSMENT: Dementia. PLAN: Current medicines have been reviewed and will be maintained. A fci is being sought for him. TRANSINT:[id number] Voice Confirmation ID: [id number] DOCUMENT ID: [id number] MERLIN SAWYER MD at 1626 CC: [id number] DICTATION DATE: 08/05/19 174 CALL SPECIALIST: 08/05/19 2332 ADM IN [address] [place] [address]
--- NOTE | 2019-08-08 19:18 | NUR ---
RECEIVED IN DAYROOM. SITTING CALMLY IN A CHAIR WITH PEERS AT HIS SIDE. CALM AND COOPERATIVE WITH CARE AND ASSESSMENT. NO SIGNS OF AGGRESSION. REDIRECT AND REORIENT NEEDED. CONTINUES TO SIT CALMLY IN DAYROOM. CONTINUE PLAN OF CARE.
[2019-08-08 19:28] VITALS: BP 152/55
[2019-08-09 08:43] VITALS: BP 140/60
[2019-08-09 19:22] VITALS: BP 166/70
--- NOTE | 2019-08-09 19:40 | NUR ---
RECEIVED IN DAYROOM. RESTING QUIETLY IN A CHAIR WITH PEERS AT HIS SIDE. CALM AND COOPERATIVE WITH CARE NAD ASSESSMENT. NO SIGNS OF AGGRESSION. REDIRECT AND REORIENT NEEDED. CONTINUES TO SIT QUIETLY IN DAYROOM. CONTINUE PLAN OF CARE.
[2019-08-10 07:47] VITALS: BP 127/79
--- NOTE | 2019-08-10 08:30 | NUR ---
RECEIVED IN HALLWAY OUTSIDE OF NURSES STATION. CALM AND COOPERATIVE WITH CARE AND ASSESSMENT. NO BEHAVIORS. REDIRECT AND REORIENT NEEDED. EATING BREAKFAST AT THIS TIME. CONTINUE PLAN OF CARE.
--- NOTE | 2019-08-10 11:32 | PN ---
PATIENT:ANTONETTE MORGAN MEDICAL RECORD: [id number] LOCATION:[facility] ADMISSION DATE: 07/23/19 PROGRESS NOTE DATE OF SERVICE: 08/09/2019 SUBJECTIVE: The patient's case was discussed with staff. He has no new complaint. OBJECTIVE: The patient is in good behavioral control. He is very confused. He has limited insight about his situation. ASSESSMENT: Dementia. PLAN: Current medicines have been reviewed and will be maintained. His long-term prognosis is guarded. TRANSINT:[id number] Voice Confirmation ID: [id number] DOCUMENT ID: [id number] MERLIN SAWYER MD at 1132 CC: [id number] DICTATION DATE: 08/09/19 1516 DOCENT COORDINATOR: 08/09/19 1950 ADM IN [facility] [address] [place] [address]
--- NOTE | 2019-08-10 19:40 | NUR ---
RECEIVED IN DAYROOM. SITTING IN A CHAIR WITH PEERS AT HIS SIDE. CALM AND COOPERATIVE WITH CARE AND ASSESSMENT. NO SIGNS OF AGGRESSION. SOCIAL WITH STAFF AND PEERS. REDIERCT AND REORIENT NEEDED. CONTINUES TO SIT QUIETLY IN DAYROOM. CONTINUE PLAN OF CARE.
[2019-08-10 19:43] VITALS: BP 143/57
[2019-08-11 08:15] VITALS: BP 138/64
--- NOTE | 2019-08-11 09:28 | NUR ---
SW CONTACTED TO SEE WHERE IN THE PROCESS SHE WAS FOR FINANCIALS AND LONG-TERM PLACEMENT. SHE STATED THE LONG-TERM HAS CALLED AND ASKED SOME QUESTIONS BUT SHE IS NOT INFORMED ON WHAT IS GOING ON. CHRIS STATED SHE NEEDS TO CALL THE LONG-TERM AND MIGHT NEED TO PRIVATE PAY UNTIL HER COUNTY SHERIFF GETS EVERYTHING IN ORDER. AI VOICED UNDERSTANDING OF DISCUSSION AND STATED SHE WILL CALL FACILITY TODAY AND ALERT SW OF NEXT STEP.
--- NOTE | 2019-08-11 10:17 | PN ---
PATIENT:ANTONETTE MORGAN MEDICAL RECORD: [id number] LOCATION:[facility] ADMISSION DATE: 07/23/19 PROGRESS NOTE DATE OF SERVICE: 08/10/2019 SUBJECTIVE: The patient's case was discussed with staff. He has no new complaint. OBJECTIVE: The patient is in good behavioral control. He is confused. He is in need of [id number]-day supervision. He intermittently has pretty disruptive behaviors. He has almost no insight about this. ASSESSMENT: Dementia. PLAN: The patient is going to be discharged to a local behavioral retirement. His long-term prognosis is guarded. TRANSINT:[id number] Voice Confirmation ID: [id number] DOCUMENT ID: [id number] MERLIN SAWYER MD at 1017 CC: [id number] DICTATION DATE: 08/10/19 1227 MIX TECHNICIAN: 08/10/19 [address] [facility] [address] [place] [address]
--- NOTE | 2019-08-11 10:34 | NUR ---
The patient is calm and quiet, he has not shown any aggression and he has not made any inappropriate comments this am. He ambulates independently. Provide prescribed meds. The patient is compliant with meds. Continue POC.
--- NOTE | 2019-08-11 13:07 | NUR ---
Nutrition Follow-up: PO intake continues to improve; ate 90-100% of meals yesterday. Diet: Regular PO intake: 67% avg x 9 meals (58% avg x 9 meals last wk) Wt: 151.2# (08/07); 152# (07/31); 150# (07/24) No new labs Meds noted: Senokot, Miralax -Encourage PO intake and honor food preferences. -Offer nutrition supplements. -Monitor wt. -RD following.
[2019-08-11 14:05] VITALS: BP 156/49
[2019-08-11 20:30] VITALS: BP 166/51
--- NOTE | 2019-08-11 21:19 | NUR ---
PATIENT IS VERY CONFUSED, NO INSIGHT, DEMANDING AT TIMES, COMPLIANT WITH MEDS, HAS TO BE DIRECTED AND REDIRECTED AT TIMES. WILL FOLLOW POC
[2019-08-12 08:16] VITALS: BP 145/71
--- NOTE | 2019-08-12 08:27 | PN ---
PATIENT:ANTONETTE MORGAN MEDICAL RECORD: [id number] LOCATION:[facility] ADMISSION DATE: 07/23/19 PROGRESS NOTE DATE OF SERVICE: 08/11/2019 SUBJECTIVE: The patient's case was discussed with staff. He has no new complaint. OBJECTIVE: The patient is in good behavioral control. He has not been aggressive. He is very impaired cognitively. His is not wanting him to come home. She wants him to go to the [facility], but she does not want to use any of his assets to pay for that. In addition to this, the is not wanting him to come home and for her to care for him. At this point, our criminal justice social worker is trying to sort out these conflicts that need to be reconciled. In the interim, he is rapidly approaching the point at which he will not meet inpatient criteria. For today, I am going to start tapering his Klonopin downward and we will also increase the dose of his Celexa. TRANSINT:[id number] Voice Confirmation ID: [id number] DOCUMENT ID: [id number] MERLIN SAWYER MD at 0827 CC: [id number] DICTATION DATE: 08/11/19 1436 ALTERNATIVE MEDICINE PRACTITIONER: 08/11/19 1704 ADM IN [facility] [address] [place] [address]
[2019-08-12 08:59] VITALS: BP 145/71
--- NOTE | 2019-08-12 11:15 | NUR ---
The patient is not showing any aggression. He is pleasant he is oriented to self. He has poor insight into his situation. Provide prescribed meds. The patient is compliant with meds. He has not shown any appropriate behavior toda. Continue POC.
[2019-08-12] MEDS ORDERED: DONEPEZIL HCL10 MG PO (15:41)
[2019-08-12] MEDS ORDERED: HYDRALAZINE HCL25 MG PO (15:41)
[2019-08-12] MEDS ORDERED: NORVASC10 MG PO (15:41)
[2019-08-12] MEDS ORDERED: GEODON20 MG PO (15:42)
[2019-08-12] MEDS ORDERED: CELEXA20 MG PO (15:42)
[2019-08-12] MEDS ORDERED: MIRALAX17 GM PO (15:43)
[2019-08-12] MEDS ORDERED: Senokot TAB PO (15:43)
[2019-08-12] MEDS ORDERED: MULTI-DAY VITAM1 TAB PO (15:43)
[2019-08-12] MEDS ORDERED: FLUTICASONE PRO16 GM NASAL (15:43)
[2019-08-12 20:25] VITALS: BP 174/59
--- NOTE | 2019-08-12 22:03 | NUR ---
B)RECEIVED PATIENT SITTING IN THE DAYROOM. LIKES TO SIT BY A PARTICULAR FEMALE PATIENT AND TRIES TO HOLD HANDS. HAS TO BE REDIRECTED AND EXPLAIN THAT HOLDING HANDS IS NOT ALLOWED. ORIENTED TO PERSON AND PLACE. RELATES THE REASON FOR HOSPITALIZATION IS " PUT ME IN HERE BECAUSE I WAS FORGETTING THINGS BUT THATS NOT THE REAL REASON." I)ADMINISTER MEDS AND MONITOR COMPLIANCE. REORIENT NEEDED. R)MED COMPLIANT. POOR REORIENTATION DUE TO IMPAIRED ABILITY TO RETAIN INFORMATION. P)CONTINUE POC AND PROVIDE SAFE ENVIRONMENT.
--- NOTE | 2019-08-13 07:46 | NUR ---
The patient is awake and alert, he is smiling and pleasant he is confused as he has asked the same question over and over. He ambulates independently. He is dcing home today, faxed all paperwork to his PCP. Provide d/c instructions to his spouse and him. Continue D/C plan.
[2019-08-13 09:39] VITALS: BP 127/51
--- NOTE | 2019-08-13 11:17 | NUR ---
PT DISCHARGING HOME WITH HIS AT THIS TIME. PT APPT MADE, PAPERWORK FAXED AND PAPERCOPY SENT WITH PT. NURSE WENT OVER MEDICATIONS. BELONGINGS WENT WITH PT WELL. BOX OF SELF CATHS SENT WITH PT. PT IS A GOOD MOOD ABOUT GOING HOME WITH . MEDICATIONS ESCRIPTED TO PHARMACY. PT AMBULATED TO CAR WITH .
--- NOTE | 2019-08-16 13:22 | PN ---
PATIENT:ANTONETTE MORGAN MEDICAL RECORD: [id number] LOCATION:[facility] ADMISSION DATE: 07/23/19 PROGRESS NOTE DATE OF SERVICE: 08/12/2019 SUBJECTIVE: The patient's case was discussed with staff. He has no new complaint. OBJECTIVE: The patient is in good behavioral control. He has limited insight about his condition. He is tolerating his medicines reasonably well. ASSESSMENT: Dementia. PLAN: The patient will be maintained on current medicines and transitioned out of the hospital tomorrow. I am dissatisfied with the discharge arrangements, but there appears to be nothing I can do. He is going to have to return home. He says he is going to do his best to get along with his . He says that he has 2 houses and that they both belong to him and he is going to live in one of them and have her live in the other while he is her. Apparently, she is also planning to divorce him. She has not been cooperative with getting him placed in a custodial, which is where he needs to be. Adult protective services is going to be notified of the situation and hopefully they can intervene to make sure he receives the proper level of supervision. Followup is going to be with his primary care physician. TRANSINT:[id number] Voice Confirmation ID: [id number] DOCUMENT ID: [id number] MERLIN SAWYER MD at 1322 CC: [id number] DICTATION DATE: 08/12/19 1539 CUSTODIAL OFFICER: 08/12/19 1747 DIS IN 08/13/19 [id number] [place] [address]
== END 2019-08-13 11:21 | disposition home or self-care (01) | DRG 57 ==
LOC: D.PSYCH 07:37
PROVIDERS: Family Medicine; ADMIT Psychiatry & Neurology Psychiatry; ATTEND Psychiatry & Neurology Psychiatry
DX: G30.1 Alzheimer's disease with late onset (principal); F02.81 Dementia in other diseases classified elsewhere, unspecified severity, with behavioral disturbance; N13.8 Other obstructive and reflux uropathy; N39.0 Urinary tract infection, site not specified; I10 Essential (primary) hypertension; F32.9 Major depressive disorder, single episode, unspecified; Z72.0 Tobacco use; N40.1 Benign prostatic hyperplasia with lower urinary tract symptoms; I25.10 Atherosclerotic heart disease of native coronary artery without angina pectoris; B96.20 Unspecified Escherichia coli [E. coli] as the cause of diseases classified elsewhere; K59.00 Constipation, unspecified; N28.9 Disorder of kidney and ureter, unspecified

== ENCOUNTER 2019-11-05 21:53 | Inpatient (IN) | payer MEDICARE, OTHER ==
[~2019-11-05] VITALS: Ht 180.3 cm; Wt 63.5 kg
[~2019-11-05 21:53] MED LIST changes: +CELEXA20 MG PO; +DONEPEZIL HCL10 MG PO; +FLUTICASONE PRO16 GM NASAL; +GEODON20 MG PO; +HYDRALAZINE HCL25 MG PO; +MIRALAX17 GM PO; +MULTI-DAY VITAM1 TAB PO; +NORVASC10 MG PO; +Senokot TAB PO
[2019-11-05 22:23] VITALS: BP 90/54
[2019-11-05 22:33] LABS: GLUCOSE NEGATIVE (NEGATIVE); KETONE NEGATIVE (NEGATIVE); NITRITE NEGATIVE (NEGATIVE)
[2019-11-05 22:34] LABS: BILIRUBIN NEGATIVE (NEGATIVE); UROBILINOGEN NORMAL (NORMAL)
[2019-11-05 22:36] LABS: UDS - AMPHET NEGATIVE QUAL (NEGATIVE); UDS - BARB NEGATIVE QUAL (NEGATIVE); UDS - BENZO NEGATIVE QUAL (NEGATIVE); UDS - COCAINE NEGATIVE QUAL (NEGATIVE); UDS - OPIATE NEGATIVE QUAL (NEGATIVE); UDS - PCP NEGATIVE QUAL (NEGATIVE); UDS - THC NEGATIVE QUAL (NEGATIVE)
[2019-11-05 22:57] LABS: BASOPHILS 0.1 % (0-2); EOSINOPHILS 0.1 % (0-7); HEMATOCRIT 39.5 % (42.0-54.0); HEMOGLOBIN 13.4 g/dL (13.5-17.5); IMMATURE GRANULOCYTES 0.3 % (0-5); LYMPHOCYTES 11.9 % (15-50); MCH 30.6 pg (26.0-34.0); MCHC 33.9 g/dL (31.0-37.0); MCV 90.2 fL (80.0-100.0); MEAN PLATELET VOLUME 9.3 fL (7.4-10.4); MONOCYTES 6.4 % (2-11); NEUTROPHILS 81.2 % (40-80); PLATELET COUNT 210 10x3/uL (130-400); RBC 4.38 10x6/uL (4.20-6.10); RDW 14.2 % (11.5-14.5); WBC 6.9 10x3/uL (4.8-10.8)
--- NOTE | 2019-11-05 22:59 | NUR ---
FSBS 121
[2019-11-05 23:05] LABS: APTT 28.1 SECONDS (22.8-39.4); INR 1.06 (0.85-1.17); PROTIME 13.8 SECONDS (11.6-15.0)
[2019-11-05 23:29] LABS: CALC OSMOLALITY 290 mosm/kg (275-300); CARBON DIOXIDE 23.6 mmol/L (21.0-32.0); CHLORIDE - SERUM 108 mmol/L (98-107); CREATININE - SERUM 2.1 mg/dL (0.6-1.3); GLUCOSE 111 mg/dL (74-106); POTASSIUM - SERUM 4.2 mmol/L (3.5-5.1); SODIUM 141 mmol/L (136-145); UREA NITROGEN 38 mg/dL (7-18); eGFR NON AFRICAN AMERICAN 32 mL/min (90-120)
[2019-11-05 23:32] VITALS: BP 119/72
[2019-11-05 23:46] LABS: ALBUMIN 3.2 g/dL (3.4-5.0); ALKALINE PHOSPHATASE 62 U/L (30-120); ALT (SGPT) 21 U/L (10-68); BILIRUBIN - TOTAL 0.59 mg/dL (0.2-1.3); CREATINE KINASE 258 UL (21-232); MAGNESIUM - SERUM 1.8 mg/dL (1.8-2.4); PROTEIN - SERUM 6.3 g/dL (6.4-8.2); THYROID STIMULATING HORMONE 4.34 uIU/mL (0.36-3.74)
[2019-11-05 23:49] LABS: TROPONIN-I < 0.017 ng/mL (0.000-0.060)
--- NOTE | 2019-11-06 00:05 | NUR ---
PATIENT UP IN HALLWAY WALKING. PULLED IV OUT. ALARM PUT ON/BACK TO BED
--- NOTE | 2019-11-06 02:30 | NUR ---
PATIENT ARRVIED ON FLOOR VIA WHEELCHAIR FROM ER. NO S/S OF ACUTE DISTRESS. NO C/O AT THIS TIME. PATIENT IS DEMENTED, HE DOESN'T REALLY KNOW WHAT IS GOING ON. PATIENT BASICALLY AGREES TO ANYTHING YOU SAY. PATIENT HAS LEFT AC, NORMAL SALINE @ 75 ML/HR. IV IS PATENT WITHOUT REDNESS, SWELLING, OR TENDERNESS. PATIENT HAS A SCRAPE ON RIGHT ELBOW. CALL LIGHT WITHIN REACH. BED ALARM ON. WILL CONTINUE TO MONITOR.
--- NOTE | 2019-11-06 02:32 | NUR ---
I have reviewed this patient and I concur with the Shift Assessment completed by the Licensed Practical Nurse today this shift.
[2019-11-06 02:34] VITALS: BP 101/65
--- NOTE | 2019-11-06 05:00 | NUR ---
PATIENT RIPPED OUT IV. CATHETER TIP INTACT. CALL LIGHT WITHIN REACH. BED ALARM ON. WILL CONTINUE TO MONITOR AND PLACE NEW IV.
[2019-11-06 06:36] LABS: BASOPHILS 0.3 % (0-2); EOSINOPHILS 0.5 % (0-7); HEMATOCRIT 37.6 % (42.0-54.0); HEMOGLOBIN 12.8 g/dL (13.5-17.5); IMMATURE GRANULOCYTES 0.5 % (0-5); LYMPHOCYTES 15.6 % (15-50); MCH 30.9 pg (26.0-34.0); MCV 90.8 fL (80.0-100.0); MEAN PLATELET VOLUME 9.5 fL (7.4-10.4); MONOCYTES 8.1 % (2-11); PLATELET COUNT 205 10x3/uL (130-400); RBC 4.14 10x6/uL (4.20-6.10); RDW 14.4 % (11.5-14.5); WBC 5.9 10x3/uL (4.8-10.8)
[2019-11-06 07:21] LABS: CALC OSMOLALITY 293 mosm/kg (275-300); CALCIUM 8.9 mg/dL (8.5-10.1); CARBON DIOXIDE 24.4 mmol/L (21.0-32.0); CHLORIDE - SERUM 109 mmol/L (98-107); CKMB 8.9 U/L (0.0-3.6); CREATINE KINASE 248 UL (21-232); CREATININE - SERUM 2.1 mg/dL (0.6-1.3); GLUCOSE 107 mg/dL (74-106); MAGNESIUM - SERUM 1.9 mg/dL (1.8-2.4); PHOSPHOROUS 3.3 mg/dL (2.5-4.9); POTASSIUM - SERUM 4.4 mmol/L (3.5-5.1); SODIUM 143 mmol/L (136-145); UREA NITROGEN 38 mg/dL (7-18); eGFR NON AFRICAN AMERICAN 32 mL/min (90-120)
[2019-11-06 07:27] LABS: TROPONIN-I < 0.017 ng/mL (0.000-0.060)
--- NOTE | 2019-11-06 08:15 | NUR ---
[facility] MORGAN HOME LINE. [phone]
[2019-11-06 09:42] VITALS: BP 135/78
--- NOTE | 2019-11-06 10:00 | NUR ---
SPOKE WITH Leeanna ALCARAZ APN ABOUT PARR PLACEMENT FOR PT SINCE HE SELF CATHS. ORDER GIVEN.
--- NOTE | 2019-11-06 10:15 | NUR ---
PARR PLACED. STERILE TECHNIQUE MAINTAINED. TOLERATED WELL. CL IN REACH. WCTM
--- NOTE | 2019-11-06 10:32 | NUR ---
PARR BAG "TIED UP IN SHEETS." BULB STILL INFLATED. BLOOD AROUND PT PENIS AND HE STATES IT IS SORE. NOTIFIED Leeanna ALCARAZ APN. DECISION MADE NOT TO PLACE PARR CATH AGAIN. REMOVED 2000 ML FROM BAG. CL IN REACH. BED ALARM ON. WCTM
[2019-11-06 12:11] LABS: CKMB 7.6 U/L (0.0-3.6); CREATINE KINASE 236 UL (21-232); TROPONIN-I < 0.017 ng/mL (0.000-0.060)
[2019-11-06 13:35] VITALS: Ht 180.3 cm; Wt 63.5 kg
--- NOTE | 2019-11-06 14:33 | NUR ---
PT REMOVED TELEMETRY
[2019-11-06 17:15] VITALS: BP 130/68
[2019-11-06 19:01] LABS: CKMB 4.5 U/L (0.0-3.6); CREATINE KINASE 263 UL (21-232)
[2019-11-06 19:04] LABS: TROPONIN-I < 0.017 ng/mL (0.000-0.060)
--- NOTE | 2019-11-06 19:06 | CN ---
PATIENT NAME:ANTONETTE MORGNA MEDICAL RECORD: [id number] : 34 LOCATION:D.MS [id number] ADMIT DATE: 11/06/19 ACCOUNT: [id number] CONSULTING PHYSICIAN: MERLIN SAWYER MD REFERRING PHYSICIAN: TRESSA DE LA TORRE MD DATE OF CONSULTATION: 11/06/2019 IDENTIFYING DATA: The patient is 88 years old and known to me from previous clinical contact. CHIEF COMPLAINT: "I just don't feel well." HISTORY OF PRESENT ILLNESS: The patient was brought to the Emergency Room last night with acute mental status changes and falls. There is no evidence of an intracranial injury and the patient is known to me from previous clinical contact. He is only partially oriented. He looks as though he has lost weight and is much more frail than he previously was. He has had some disruptive behaviors and some confusion and agitation. ASSESSMENT: Dementia, Alzheimer's type. PLAN: Once medically stabilized, the patient should be transferred to acute inpatient psychiatric care for continued evaluation and stabilization. Clearly, this patient is not doing well and should not be living alone. This was known when he was here before and there simply were no options regarding placement. There was a conflict between him and his second . I think that placing him in the behavioral unit will give us a chance to sort dose issues out and place him in the least restrictive environment that can meet his needs. TRANSINT:[id number] Voice Confirmation ID: [id number] DOCUMENT ID: [id number] MERLIN SAWYER MD at 1906 CC: [id number] DICTATION DATE: 11/06/19 1220 ECOSYSTEM ECOLOGY PROFESSOR: 11/06/19 1236 ADM IN [facility] [address] [place] [address]
--- NOTE | 2019-11-06 19:15 | NUR ---
PATIENT ALERT AND CONFUSED. ATTEMPTING TO GET OUT OF BED. PATIENT HAS IV TO THE LEFT FOREARM THAT IS SECURED BUT INFILTRATED WITH SWELLING NOTED. REMOVED IV AND ELEVATED ARM. RETURNED PATIENT TO BED SAFELY. FALL PRECAUTIONS REMAIN IN PLACE. CPOC.
[2019-11-06 20:00] VITALS: BP 150/61
--- NOTE | 2019-11-06 20:00 | NUR ---
ATTEMPTING TO RESITE IV. PATIENT REFUSES AT THIS TIME. STATES HE IS TIRED. WILL ATEMPT LATER IN SHIFT. CPOC.
--- NOTE | 2019-11-06 21:36 | NUR ---
ENCOURAGED PATIENT TO DRINK FLUIDS SINCE NO IV AT THIS TIME. PATIENT DRANK SEVERAL OZ OF WATER ON COMMAND. DENIES NEEDS. FALL PRECAUTIONS IN PLACE. CPOC.
--- NOTE | 2019-11-06 21:36 | NUR ---
PATIENT REMOVED STAVE MILL HAND 8 TIMES. ATTEMPTED TO RECONNECT, PATIENT STATED "DON'T PUT THAT BACK ON ME I DON'T WANT IT!" EDUCATION PROVIDED. PATIENT STATES "I DON'T WANT IT." RETURNED TO WANIGAN CLERK.
[2019-11-07] VITALS: BP 89/50
--- NOTE | 2019-11-07 02:58 | NUR ---
ATTEMPTED TO RESITE IV X2, OTHER RN ATTEMPTED TO RESITE X 2. UNSUCCESSFUL AT THIS TIME.
--- NOTE | 2019-11-07 03:00 | NUR ---
IV RESITED TO THE RIGHT FOREARM
[2019-11-07 04:00] VITALS: BP 155/62
--- NOTE | 2019-11-07 04:59 | NUR ---
NO URINE OUTPUT. IN AND OUT CATH ON PATIENT. NO URINE OUT AT THIS TIME. PATIENT STATES "I DONT HAVE TO PEE" THEN STATES "TAKE IT OUT I DONT NEED TO PEE RIGHT NOW."
--- NOTE | 2019-11-07 05:49 | NUR ---
BLADDER SCAN SHOWED 890 IN BLADDER. SECOND IN AND OUT. RECEIVED 900 OUT IN DARK LUIS ENRIQUE URINE.
[2019-11-07 07:05] LABS: BASOPHILS 0.5 % (0-2); EOSINOPHILS 0.9 % (0-7); HEMATOCRIT 37.7 % (42.0-54.0); HEMOGLOBIN 12.8 g/dL (13.5-17.5); IMMATURE GRANULOCYTES 0.4 % (0-5); LYMPHOCYTES 18.2 % (15-50); MCH 30.3 pg (26.0-34.0); MCV 89.1 fL (80.0-100.0); MEAN PLATELET VOLUME 9.2 fL (7.4-10.4); MONOCYTES 6.3 % (2-11); NEUTROPHILS 73.7 % (40-80); PLATELET COUNT 231 10x3/uL (130-400); RBC 4.23 10x6/uL (4.20-6.10); RDW 14.1 % (11.5-14.5); WBC 5.7 10x3/uL (4.8-10.8)
[2019-11-07 07:33] LABS: ANION GAP 12.3 mmol/L (8-16); CALCIUM 8.9 mg/dL (8.5-10.1); CARBON DIOXIDE 24.5 mmol/L (21.0-32.0); CREATININE - SERUM 1.8 mg/dL (0.6-1.3); MAGNESIUM - SERUM 1.9 mg/dL (1.8-2.4); PHOSPHOROUS 2.8 mg/dL (2.5-4.9); POTASSIUM - SERUM 3.8 mmol/L (3.5-5.1)
--- NOTE | 2019-11-07 08:53 | NUR ---
PT SLEEPING ON RIGHT SIDE. NO NEEDS AT THIS TIME. CL IN REACH. WCTM.
--- NOTE | 2019-11-07 13:17 | NUR ---
BLADDER SCANNED PT BECAUSE HE WAS GETTING AGITATED. STATES HE IS COLD. COVER HIM UP WITH A WARM BLANKET SAYS HE IS HOT. BLADDER SCAN SHOWED 511. 500 ML REMOVED WITH IN AND OUT CATH. PT WAS TRYING TO ROLL OVER DURING PROCEDURE. CL IN REACH. WCTM
[2019-11-07 13:28] VITALS: BP 126/58
--- NOTE | 2019-11-07 13:35 | NUR ---
IV THERAPY RESTARTED WITH 22G TO RIGHT FOREARM. CL IN REACH. WCTM
[2019-11-07] MEDS ORDERED: ALBUTEROL2.5 MG/3 M UPD (14:39)
--- NOTE | 2019-11-07 15:00 | NUR ---
CALLED AI TO NOTIFY HER OF PT GOING TO [facility].
== END 2019-11-07 15:36 | DRG 682 ==
LOC: D.ER 21:53 → OBSVTIME 23:55 → D.MS 23:55
PROVIDERS: Family Medicine; ADMIT Emergency Medicine; ATTEND Emergency Medicine
DX: N17.9 Acute kidney failure, unspecified (principal); G93.41 Metabolic encephalopathy; I13.0 Hypertensive heart and chronic kidney disease with heart failure and stage 1 through stage 4 chronic kidney disease, or unspecified chronic kidney disease; I50.20 Unspecified systolic (congestive) heart failure; N18.9 Chronic kidney disease, unspecified; F03.90 Unspecified dementia, unspecified severity, without behavioral disturbance, psychotic disturbance, mood disturbance, and anxiety; D64.9 Anemia, unspecified; N40.0 Benign prostatic hyperplasia without lower urinary tract symptoms; I25.10 Atherosclerotic heart disease of native coronary artery without angina pectoris; W19.XXXA Unspecified fall, initial encounter

== ENCOUNTER 2019-11-07 15:32 | Inpatient (IN) | payer MEDICARE, OTHER ==
[~2019-11-07] VITALS: Ht 180.3 cm; Wt 53.3 kg
[~2019-11-07 15:32] MED LIST changes: +ALBUTEROL2.5 MG/3 M UPD
--- NOTE | 2019-11-07 16:26 | NUR ---
VERY ANXIOUS,TREMBLING OBSERVED.CONSTANTLY GETTING OUT OF ONE CHAIR AND INTO ANOTHER.HAS BLANKET AND JUICE.WILL NOT REDIRECT,NONCOMPLIANT.ATIVAN 0.5MG PO GIVEN FOR ANXIETY.
[2019-11-07 16:49] VITALS: BP 143/45
--- NOTE | 2019-11-07 17:00 | NUR ---
CONTINUES TO BE RESTLESS,CONSTANTLY MOVING ABOUT.POOR RESPONSE TO ATIVAN.
[2019-11-07 17:16] VITALS: BP 143/45; BMI 17.4
--- NOTE | 2019-11-07 18:25 | NUR ---
CONTINUES TO BE VERY RESTLESS,CONSTANTLY MOVING ABOUT.TREMBLING OBSERVED.GEODON 10MG IM TO LEFT DELTOID GIVEN PER ORDERS.
--- NOTE | 2019-11-07 19:58 | NUR ---
RECEIVED IN DAYROOM. SITTING IN A CHAIR WITH PEERS AT HIS SIDE. CALM AND COOPERATIVE WITH CARE AND ASSESSMENT. CONFUSED. ENCOURAGE TO EXPRESS NEEEDS. REDIRECT AND REORIENT NEEDED. CONTINUES TO SIT CALMLY IN DAYROOM. CONTINUE PLAN OF CARE.
[2019-11-07 20:37] VITALS: BP 95/45
--- NOTE | 2019-11-08 07:45 | NUR ---
REC'D PT IN HALLWAY IN TUAN CHAIR WITH PEERS. PT IS AWAKE AND ALERT TO PERSON ONLY. ASSESSMENT COMPLETED. PT IS RESTING CALMLY IN TUAN CHAIR AT THIS TIME. REDIRECT AND REORIENT NEEDED. FALL PRECAUTIONS IN PLACE. WILL CPOC.
[2019-11-08 07:56] LABS: CHOL - HDL RATIO 4.4 ratio (2.3-4.9); LDL-HDL RATIO 2.9 ratio (1.5-3.5); THYROID STIMULATING HORMONE 3.31 uIU/mL (0.36-3.74)
[2019-11-08 09:21] VITALS: BP 131/65
--- NOTE | 2019-11-08 10:38 | NUR ---
LATE ENTRY: PT WAS ADMITTED FORM MED. SURG FOR AGGRESSION AND PULLING OUT LINES. PT UNABLE TO URINATE BUT WILL NOT ALLOW STAFF TO PUT IN A PARR. IN AND OUT CATHING TO BE DONE FREQUENTLY. PT CONTINUES TO BE RESTLESS AND AGITATED WITH CARE. FALL PRECAUTIONS IN PLACE. PT IS A FULL CODE PER AI MORGAN HIS SPOUSE. SHE IS HIS POA AND GAVE CONSENT FOR TREATMENT. WILL CONTINUE TO MONITOR AND INITIATE CARE PLANS.
[2019-11-08 10:58] VITALS: Ht 180.3 cm; Wt 53.3 kg
--- NOTE | 2019-11-08 12:27 | PN ---
PATIENT:ANTONETTE MORGAN MEDICAL RECORD: [id number] LOCATION:GE [facility]112 ADMISSION DATE: 11/07/19 PROGRESS NOTE DATE OF SERVICE: 11/07/2019 SUBJECTIVE: The patient's case was discussed with staff. He has no new complaint. OBJECTIVE: The patient is in a reasonable behavioral control. He is certainly impaired cognitively. He has not been significantly agitated today. He is unable to tell me about the events of the past couple of months when he has been out of the hospital. I do not have access to his weight when he left here, but he has clearly lost a substantial amount of weight and is in need of 60-moid-r-day supervision. I would recommend he be transferred to the behavioral unit when medically stabilized and we will assist with the appropriate assessment of his cognition and placement in the least restrictive environment possible. TRANSINT:[id number] Voice Confirmation ID: [id number] DOCUMENT ID: [id number] EMRLIN SAWYER MD at 1227 CC: [id number] DICTATION DATE: 11/07/19 1350 SPECIAL FORCES OFFICER: 11/08/19 0143 ADM IN [facility] [address] [place] [address]
[2019-11-08 20:05] VITALS: BP 137/72
--- NOTE | 2019-11-09 02:22 | NUR ---
B) Patient is alert and oriented to self, calm and cooperative this shift I) Administered scheduled medications as ordered, in and out cath for urine , R) Medication compliant, only recieved 10 ml of urine wih cath, mica t and cooperative with prcedure, P) Continue plan of care.
--- NOTE | 2019-11-09 08:21 | HP ---
PATIENT: ANTONETTE MORGAN MEDICAL RECORD: [id number] ACCOUNT: [id number] LOCATION:GE [place] : 32 ADMISSION DATE: 11/07/19 PCP: No PCP HISTORY AND PHYSICAL EXAMINATION IDENTIFYING DATA: The patient is 88 years old and he is admitted to the hospital on a voluntary basis. CHIEF COMPLAINT: Confusion and agitation. HISTORY OF PRESENT ILLNESS: The patient is very well known to me from previous clinical contact. In fact, I saw him recently on the medical floor secondary to an admission there. He was recently admitted to the medical floor because of confusion, agitation, recent falls. He has a long history of dementia and in fact he has been a patient here in the past. He has a conflict with his , they live in different houses. She apparently wanted him in the penitentiary when he was here before, he did not want to go. My assessment was that he needed 24-hour day care. The does not want him at home with her on a time piece repairer basis and she had indicated that she would assist in his care, which I am not so sure about. When he comes into the hospital this time he has clearly lost a lot of weight. He is not able to give me much in the way of longitudinal history. PAST MEDICAL HISTORY: Significant for coronary artery disease with a stent placement. He has benign prostatic hypertrophy, hypertension, bradycardia, and cataracts. PAST PSYCHIATRIC HISTORY: Significant for an established diagnosis of dementia with hospitalizations in the past because of agitation associated with that condition. FAMILY HISTORY: Unknown. ALLERGIES: NIACIN, SIMVASTATIN, AND ELAVIL. CURRENT MEDICATIONS: Include Aricept, Norvasc, hydralazine, Celexa, Geodon, and albuterol. SOCIAL HISTORY: The patient is to his second . He has 2 children. He is a retired [employer]. MENTAL STATUS EXAMINATION: The patient is disheveled, distressed, and will only oriented to person. His mood is flat. His affect is constricted. Thought processes are disorganized. Memory, concentration, and abstraction abilities are least moderately impaired and he denies that he would seek to harm himself or others as well as overt psychotic symptoms. 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 AXIS II: None. AXIS III: Hypertension, benign prostatic hypertrophy, coronary artery disease. AXIS IV: Moderate. AXIS V: Global assessment of functioning is 30. HISTORY AND PHYSICAL [id number] ANTONETTE MORGAN PLAN: At this time, the patient is admitted to the hospital for comprehensive medical, psychological, and social evaluation. He will be treated with both mood stabilizing and memory enhancing medications. It is important that he receive 81-zwul-p-day supervision and the least restrictive environment that will provide this will be sought. TRANSINT:[id number] Voice Confirmation ID: [id number] DOCUMENT ID: [id number] MERLIN SAWYER MD at 0821 CC: [id number] DICTATION DATE: 11/08/19 1623 BIG DATA ADMIN: 11/08/19 2119 ADM IN [place] [id number] [place] [address]
--- NOTE | 2019-11-09 09:30 | NUR ---
PT IS CONFUSED, RESTLESS AND AGITATED. PT IS STANDING UP AND SITTING DOWN CONSTANTLY. STAFF ATTEMPTED TO WALK AND REDIRECT BEHAVIOR. PT IS BREATHING HEAVY AND RESTLESS. ATIVAN 0.5 MG AND HALDOL [address] SAWYER ORDER. WILL CONT TO MONITOR FOR BEHAVIORS.
[2019-11-09 09:53] VITALS: BP 120/64
--- NOTE | 2019-11-09 10:30 | NUR ---
PRN NOT EFFECTIVE AT THIS TIME. PT CONTS TO BE RESTLESS AND AGIATED.
--- NOTE | 2019-11-09 11:20 | NUR ---
PT HAS HAD CONSTANT BOWEL MOVEMENTS. REDDENDED AREA NOTED TO BUTTOCKS. NURSE MISAEL PUENTES AWARE OF PTS BUTTOCKS AND CONSTANT BOWEL MOVEMENTS. WILL ADMINISTER WHEN AVALIABLE.
--- NOTE | 2019-11-09 14:52 | NUR ---
PT SITTING IN CHAIR AT THIS TIME. PT HAS BEEN CONFUSED, RESTLESS. PT IS CONFUSED AND ALERT TO SELF ONLY. PT JUST SHOWERED AND RELAXING WITH EYES CLOSED. PT IS COMPLIANT WITH MEDS. BEHAVIORS NOTED ON THIS SHIFT AND PREVIOUS SHIFT. PT CONTS TO HAVE EXCESSIVE BOWEL MOVEMENTS. NEW ORDER: MIRALAX CHANGED TO PRN, TYLENOL 325 MG Q 6H, AND OINTMENT TO BUTTOCKS BID. PT DID VOID HIMSELF THIS SHIFT. CHAIR ALARM IN PLACE AND ACTIVE. WILL CONT PLAN OF CARE.
[2019-11-09 20:28] VITALS: BP 161/66
--- NOTE | 2019-11-09 20:30 | NUR ---
PATIENT TOILETED. HIS BRIEF WAS MOIST WITH DARK BROWN STOOL AND A SMALL AMOUNT OF RED COLOR MUCOUS STOOL.
--- NOTE | 2019-11-09 22:33 | NUR ---
B) Patient is alert and oriented person, elaine and cooperative, I) Administered scheduled medication, monitored for safety, treated for reddness in mulugeta area. R) Medication compliant, follows instructions, P) Continue plan of care.
--- NOTE | 2019-11-10 03:00 | NUR ---
AMBULATED TO BATHROOM WITH ASSISTANCE, HAD A LOOSE DIARRHEA STOOL ON WAY TO BATHROOM. STATED THAT HE DID NOT FEEL VERY WELL.
--- NOTE | 2019-11-10 04:00 | NUR ---
PATIENT IS RESTLESS AND MOANING IN DISCOMFORT. ABDOMIN IS TIGHT AND DISTENDED. PATIENT REQUESTING AN IN AND OUT CATHTERIZATION. PROCEDURE PREFORMED WITH 850 CC LUIS ENRIQUE URINE OBTAINED. PATIENT STATED FEELS BETTER. URINE SENNT TO LAB.
[2019-11-10 09:01] LABS: BASOPHILS 0.1 % (0-2); EOSINOPHILS 0.5 % (0-7); HEMATOCRIT 34.5 % (42.0-54.0); HEMOGLOBIN 11.8 g/dL (13.5-17.5); IMMATURE GRANULOCYTES 0.2 % (0-5); LYMPHOCYTES 12.5 % (15-50); MCH 30.6 pg (26.0-34.0); MCHC 34.2 g/dL (31.0-37.0); MCV 89.4 fL (80.0-100.0); MEAN PLATELET VOLUME 9.5 fL (7.4-10.4); MONOCYTES 6.2 % (2-11); NEUTROPHILS 80.5 % (40-80); PLATELET COUNT 214 10x3/uL (130-400); RBC 3.86 10x6/uL (4.20-6.10); RDW 14.6 % (11.5-14.5); WBC 8.3 10x3/uL (4.8-10.8)
[2019-11-10 09:10] LABS: ANION GAP 11.5 mmol/L (8-16); CALCIUM 9.9 mg/dL (8.5-10.1); CARBON DIOXIDE 24.5 mmol/L (21.0-32.0); CREATININE - SERUM 2.6 mg/dL (0.6-1.3)
[2019-11-10 09:16] VITALS: BP 142/55
[2019-11-10 09:32] LABS: BILIRUBIN NEGATIVE (NEGATIVE); GLUCOSE NEGATIVE (NEGATIVE); KETONE NEGATIVE (NEGATIVE); NITRITE NEGATIVE (NEGATIVE); UROBILINOGEN NORMAL (NORMAL)
[2019-11-10 09:34] LABS: RED CELLS - URINE 0-5 /hpf (0-5); WHITE CELLS - URINE >50 /hpf (NEGATIVE)
[2019-11-10 09:35] LABS: BACTERIA MODERATE /hpf (NEGATIVE)
--- NOTE | 2019-11-10 10:36 | NUR ---
REC'D PT IN RECLINING CHAIR IN [address] BY NURSES STATION. PT IS AWAKE AND ALERT TO PERSON ONLY. ASSESSMENT COMPLETED. PRESCRIBED MEDS PROVIDED ORDERED. MED COMPLIANT. PT IS RESTLESS AND BECOMES AGITATED EASILY WITH REDIRECTION. REDIRECT AND REORIENT NEEDED. REDDNESS NOTED TO BUTTOCKS OINT APPLIED ORDERED. EGG CRATE PLACED IN RECLINING CHAIR FOR PRESSURE RELIEF. FALL PRECAUTIONS IN PLACE FOR SAFETY. WILL CPOC.
--- NOTE | 2019-11-10 15:51 | NUR ---
Nutrition Follow-up: Chart reviewed. Noted that patient has to be fed at mealtimes. He was changes to a regular diet on 11/07/19 2/2 poor appetite/underweight. Diet: Regular PO intake: ~25% average x last 9 meals Last BM: 11/10/19 x 3. Wt: 128# (11/09/19); Admit Wt: 124# (11/07/19) Meds reviewed. Renal labs noted: BUN 53(H), Cr 2.6(H), GFR 25(L). Recommend continue regular diet, fed at meal times, encouraged PO intake at meal times. MD may consider adding appetite stimulant, such as Megace ES. RD following.
--- NOTE | 2019-11-10 15:58 | PN ---
PATIENT:ANTONETTE MORGAN MEDICAL RECORD: [id number] LOCATION:GE Buck112 ADMISSION DATE: 11/07/19 PROGRESS NOTE DATE OF SERVICE: 11/09/2019 SUBJECTIVE: The patient's case was discussed with staff. He has no new complaint. OBJECTIVE: The patient is disorganized, but limited in his insight. He did require some p.r.n. medication last night because of agitation. ASSESSMENT: Dementia. PLAN: Current medicines have been reviewed and will be maintained. Supportive and educational interventions were made. TRANSINT:[id number] Voice Confirmation ID: [id number] DOCUMENT ID: [id number] MERLIN SAWYER MD at 1558 CC: [id number] DICTATION DATE: 11/09/19 1531 DB2 SYSTEMS PROGRAMMER: 11/10/19 0007 ADM IN [facility] [address] [place] [address]
[2019-11-10 20:01] VITALS: BP 148/47
--- NOTE | 2019-11-10 23:44 | NUR ---
B) Patient is alert and oriented to person, calm and cooperative this shift, I) Administered scheduled medications as ordered, assisted with needs, R) mediation compliant, sleeping now in his bed, P) Continue plan of care.
--- NOTE | 2019-11-11 05:58 | NUR ---
IN AND OUT CATH PERFORMED AND 750 ML OF URINE REMOVED. PT RELATED THAT HE DIDN'T WISH TO CONTINUE DRAINING HIS BLADDER. WILL CONTINUE TO MONITOR.
[2019-11-11 07:18] LABS: CALCIUM 8.3 mg/dL (8.5-10.1); CARBON DIOXIDE 26.5 mmol/L (21.0-32.0); CREATININE - SERUM 2.7 mg/dL (0.6-1.3); POTASSIUM - SERUM 3.5 mmol/L (3.5-5.1)
--- NOTE | 2019-11-11 08:15 | NUR ---
The patient is very confused, he stands up and tells staff "Yea, I can walk." He can ambulate, but he has fallen multiple times at home and that is one reason he came to the hospital. He has poor insight into his situation, he does not know where he is or why, he does not know the date or time. He is restless and keeps saying he has to go somewhere, but he is not able to state where he needs to go. Currently he has not shown aggression, will monitor his behavior and mood. Provide prescribed meds. Continue POC.
[2019-11-11 09:25] VITALS: BP 101/65
--- NOTE | 2019-11-11 12:01 | PN ---
PATIENT:ANTONETTE MORGAN MEDICAL RECORD: [id number] LOCATION:GE [facility]112 ADMISSION DATE: 11/07/19 PROGRESS NOTE DATE OF SERVICE: 11/10/2019 SUBJECTIVE: The patient's case was discussed with staff. He has no new complaint. OBJECTIVE: The patient is not eating adequately. He is very disorganized and weak. He denies that he would seek to harm himself or others. ASSESSMENT: Dementia. PLAN: The patient will be maintained on current medicines; however, he will be started on Megace suspension to stimulate his appetite. PROGNOSIS: Guarded. TRANSINT:[id number] Voice Confirmation ID: [id number] DOCUMENT ID: [id number] MERLIN SAWYER MD at 1201 CC: [id number] DICTATION DATE: 11/10/19 1606 COOKER PIE FILLING: 11/11/19 0316 ADM IN [facility] [address] [place] [id number]
--- NOTE | 2019-11-11 13:11 | NUR ---
Two attempts to insert IV caths, first attempt in the right wrist, second attempt close to right AC.
--- NOTE | 2019-11-11 16:27 | NUR ---
The patient is anxious and restless. He is trying to get up and walk, staff assisted him to walk. He then wants to lay down, then he switches chairs, he asked to go to the bathroom, staff take him, but he is not able to void. Asked the patient if he wants to have an in and out cath, he said "No, I don't have to go." He is very confused, but anxious. Ativan 0.5 mg and Haldol 25 mg po provided.
--- NOTE | 2019-11-11 18:56 | NUR ---
baldder scan 89 ml noted in bladder
[2019-11-11 21:22] VITALS: BP 97/64
--- NOTE | 2019-11-11 21:40 | NUR ---
B.) PT IS ALERT AND ORIENTED TO SELF ONLY. HE IS RECEIVED IN THE DAYROOM IN A GERICHAIR. HE IS AGITATED AT TIMES AND RESTLESS. HE IS LABILE AT TIMES AND UNABLE TO REDIRECT. I.) IV STARTED IN RIGHT WRIST WITH 22G. ADMINISITERED IM ATIVAN 0.5MG PRN. PROVIDED PM MEDICATIONS PRESCRIBED. REDIRECT OFTEN. R.) COMPLIANT WITH IV PLACEMENT AND HS MEDICATIONS. DIFFICULT TO REDIRECT. P.) WILL CONTINUE TO MONITOR.
--- NOTE | 2019-11-11 22:10 | NUR ---
PT RESTING CALMLY IN GERICHAIR IN THE HALLWAY WITH EYES CLOSED. NO DISTRESS NOTED. WILL CONTINUE TO MONITOR.
--- NOTE | 2019-11-12 05:10 | NUR ---
PATIENT HAD URINE OUTPUT BY CATH OF 1150 ML.
--- NOTE | 2019-11-12 07:36 | NUR ---
The patient is sleeping easily. He has poor insight into his situation. He does not follow direction well. Lab is here drawing blood. The patient tolerates well, no aggression noted. He doesn't know where he is or the time. Provide prescribed meds. The patient has an IV infusing in his right wrist. Continue POC.
[2019-11-12 08:26] LABS: ANION GAP 11.4 mmol/L (8-16); CALCIUM 8.1 mg/dL (8.5-10.1); CARBON DIOXIDE 23.9 mmol/L (21.0-32.0); CREATININE - SERUM 2.2 mg/dL (0.6-1.3)
[2019-11-12 08:27] LABS: POTASSIUM - SERUM 4.3 mmol/L (3.5-5.1)
[2019-11-12 09:07] VITALS: BP 133/46
--- NOTE | 2019-11-12 13:20 | PN ---
PATIENT:ANTONETTE MORGAN MEDICAL RECORD: [id number] LOCATION:GE [facility]112 ADMISSION DATE: 11/07/19 PROGRESS NOTE DATE OF SERVICE: 11/11/2019 SUBJECTIVE: The patient's case was discussed with staff. He has no new complaint. OBJECTIVE: The patient is not eating adequately. He has been cooperative. We are forcing fluids on him as best we can. An IV is not going to be effective since he will certainly pull it out as confused and agitated as he is. He has been started on antibiotic for a presumptive urinary tract infection and I am hopeful that this will help over the next few days. Otherwise, current medicines are going to be maintained. TRANSINT:[id number] Voice Confirmation ID: [id number] DOCUMENT ID: [id number] MERLIN SAWYER MD at 1320 CC: [id number] DICTATION DATE: 11/11/19 1609 INJECTION MOLD TECHNICIAN: 11/11/19 2336 ADM IN [facility] [address] [place] [address]
--- NOTE | 2019-11-12 15:36 | NUR ---
PATIENT URINE OUTPUT OF BY CATH 1,000 ML. WILL RECATH AT A LATER TIME FOR MORE OUTPUT.
[2019-11-12 21:05] VITALS: BP 90/57
--- NOTE | 2019-11-12 21:30 | NUR ---
PRN FOR PAIN WAS EFFECTIVE FOR DISCOMFORT. WILL CONTINUE TO MONITOR.
--- NOTE | 2019-11-12 21:51 | NUR ---
ULTRAM 50 MG PO GIVEN FOR COMPLAINING OF MUSCLE AND BACK PAIN.
--- NOTE | 2019-11-12 22:29 | NUR ---
PATIENT GIVEN ATIVAN IM PRN FOR EXTREME AGITATION, HE WAS GETTING UP, STRETCHING IV LINE AND KEEPS SAYING "CAN YOU HELP ME"? ALL NEEDS WERE MET. WILL FOLLOW UP FOR EFFECTIVENESS.
--- NOTE | 2019-11-13 07:10 | NUR ---
PTS IV LINE INFILTRATED AND NURSE REMOVED IV AND PTS ARM BANDS WELL. WILL NOTIFIED DOCTOR ABOUT REMOVAL TO DETERMINE IF RESITING IS NEEDED.
--- NOTE | 2019-11-13 12:27 | NUR ---
SPOKE WITH Heber PATTERSON APRN ABOUT INFILRATION ON IV. NEW ORDER: D/C IV AND INSERT A PARR CATHETER AND LEAVE IT. CONT TO FEED AND MONITOR FLUID INTAKE.
[2019-11-13 13:22] VITALS: BP 96/57
[2019-11-13 14:20] VITALS: BP 130/68
--- NOTE | 2019-11-13 15:22 | NUR ---
NURSE INSERTED PARR CATHETER PER ORDER. 1ST PARR KIT WAS DEFECTIVE. NNURSE REMOVED DEFECTIVE LINE. NURSE INSERTED 2ND PARR CATHETER AND BULB WAS INSERTED. URINE RETURN NOTED. 500 ML RETURN NOTED. PT TOLERATED VERY WELL.
--- NOTE | 2019-11-13 15:40 | NUR ---
NURSE NOTIFIED Heber PATTERSON OF THICK KELLEY COLORED URINE NOTED IN BAG AND PARR LINE. PT DENIES PAIN. STATED HE FEELS BETTER. NO FEVER NOTED. VITAL SIGNS STABLE. LABS ORDERED. WILL CONT TO MONITOR.
[2019-11-13 17:20] LABS: BASOPHILS 0.3 % (0-2); HEMATOCRIT 35.5 % (42.0-54.0); HEMOGLOBIN 11.8 g/dL (13.5-17.5); IMMATURE GRANULOCYTES 0.4 % (0-5); LYMPHOCYTES 19.6 % (15-50); MCHC 33.2 g/dL (31.0-37.0); MCV 93.2 fL (80.0-100.0); MEAN PLATELET VOLUME 9.3 fL (7.4-10.4); MONOCYTES 6.3 % (2-11); NEUTROPHILS 72.4 % (40-80); PLATELET COUNT 236 10x3/uL (130-400); RBC 3.81 10x6/uL (4.20-6.10); RDW 15.2 % (11.5-14.5); WBC 7.7 10x3/uL (4.8-10.8)
--- NOTE | 2019-11-13 18:01 | NUR ---
900 CC NOTED IN PARR WHEN DRAINED. CLAMPED LINE AND WAITED. 700 CC OUTPUT NOTED AT THIS TIME. PT DENIES ANY PAIN. PT STATES HE FEEL BETTER. NO FEVER NOTED. VITAL SIGNS WNL. WILL CONT TO MONITOR.
--- NOTE | 2019-11-13 18:04 | NUR ---
PT UP EATING DINNER AT THIS TIME. WBC WNL. PT CONTS ON IM ANTIBIOTICS. NO S/S OF REACTION NOTED.
[2019-11-13 18:23] LABS: ANION GAP 14.9 mmol/L (8-16); CALCIUM 8.2 mg/dL (8.5-10.1); CARBON DIOXIDE 21.9 mmol/L (21.0-32.0); CREATININE - SERUM 1.8 mg/dL (0.6-1.3); POTASSIUM - SERUM 4.8 mmol/L (3.5-5.1)
--- NOTE | 2019-11-13 23:16 | NUR ---
RECEIVED PATIENT IN DAYROOM, CONFUSED IN GERICHAIR, PARR DRAINING WITHOUT DIFFICULTY, ULTRAM AND ATIVAN GIVEN ON THIS SHIFT FOR PAIN TO BACK AND ATIVAN FOR AGITATION AND RESTLESSNESS. IT WAS EFFECTIVE
[2019-11-14 07:56] LABS: ANION GAP 10.3 mmol/L (8-16); CALCIUM 8.6 mg/dL (8.5-10.1); CREATININE - SERUM 1.5 mg/dL (0.6-1.3); POTASSIUM - SERUM 4.3 mmol/L (3.5-5.1)
[2019-11-14 08:53] VITALS: BP 137/46
--- NOTE | 2019-11-14 15:04 | NUR ---
PT SITTING IN RECLINING CHAIR IN DAYRROM WITH PEERS. PT IS VERY CONFUSED. ALERT TO SELF ONLY. ASSESSMENT COMPLETE. PRESCRIBED MEDS PROVIDED ORDERED. MED COMPLIANT. PT IS RESTLESS AND BECOMES EASILY AGITATED WITH REDIRECTION PER STAFF. PINK CUSHION IN RECLINING CHAIR FOR PRESSURE RELIEF. FALL PRECAUTIONS IN PLACE. WILL CPOC.
[2019-11-14 19:36] VITALS: BP 110/71
--- NOTE | 2019-11-14 22:12 | NUR ---
B) Patient is alert and oriented to self, calmer this shift, follows instructions, I) Administered scheduled medications as ordered, monitored for safety R) Mediation compliant, quiet and sitting in a jennifer chair, P) Continue plan of care.
[2019-11-15 09:08] VITALS: BP 111/56
--- NOTE | 2019-11-15 16:57 | NUR ---
PT IN DAYROOM IN RECLINING CHAIR. AWAKE AND ALERT TO PERSON ONLY. CALM AND COOPERATIVE WITH ASSESSMENT. PRESCRIBED MEDS PROVIDED ORDERED. MED COMPLIANT. NO BEHAVIORS NOTED AT THIS TIME. WILL CPOC.
--- NOTE | 2019-11-15 19:27 | NUR ---
RECEIVED IN DAYROOM. RESTING QUIETLY IN A RECLINER. CALM AND COOPERATIVE WITH CARE AND ASSESSMENT. ENCOURAGE TO EXPRESS NEEDS. REDIRECT AND REORIENT NEEDED. CONTINUES TO REST QUIETLY IN DAYROOM. CONTINUE PLAN OF CARE.
[2019-11-15 20:10] VITALS: BP 132/46
--- NOTE | 2019-11-16 08:22 | PN ---
PATIENT:ANTONETTE MORGAN MEDICAL RECORD: [id number] LOCATION:GE [facility] ADMISSION DATE: 11/07/19 PROGRESS NOTE DATE OF SERVICE: 11/15/2019 SUBJECTIVE: The patient's case was discussed with staff. He has no new complaint. OBJECTIVE: The patient is eating and sleeping well. He will be maintained on current medications. ASSESSMENT: Dementia. PLAN: Brief supportive and educational interventions were made. TRANSINT:[id number] Voice Confirmation ID: [id number] DOCUMENT ID: [id number] MERLIN SAWYER MD at 0822 CC: [id number] DICTATION DATE: 11/15/19 1730 RESOURCE FORESTER: 11/16/19 0134 ADM IN [place] [id number] [place] [address]
[2019-11-16 10:03] VITALS: BP 129/75
--- NOTE | 2019-11-16 15:28 | NUR ---
PT SITTING IN CHAIR EATING POPISCLE. PT C/O OF BEING COLD. TECH TOOK PTS TEMP 99.1 F ORAL. PT ALSO C/O OF PAIN AT THIS TIME. PT IS COMPLIANT WITH MEDS, VITALS AND ASSESSMENT. PT CAN NOT MAKE NEEDS KNOWN. TAKES MEDS WHOLE. PT HAS A [address] AND DRAINING PROPERLY. PT CONTS ON IM ANTIBIOTICS AT THIS TIME. NO S/SX OF REACTION NOTED. CHAIR ALARM IN PLACE AND ACTIVE. WILL CONT PLAN OF CARE.
--- NOTE | 2019-11-16 15:53 | NUR ---
NURSE READJUSTED PT IN CHAIR ON BACK DUE TO Q HR TURN. NURSE REAJUSTMENT PARR CATH LINE.
[2019-11-16] MEDS ORDERED: Megace ES [CHEMO] PO (16:10)
[2019-11-16] MEDS ORDERED: Xylocaine-MPF 1% IM (16:10)
[2019-11-16] MEDS ORDERED: LIDODERM 5 %1 PATCH TRANSDERM (16:10)
[2019-11-16] MEDS ORDERED: FOLIC ACID1 MG PO (16:11)
[2019-11-16] MEDS ORDERED: CALMOSEPTINE OI71 GM TOPICAL (16:11)
[2019-11-16] MEDS ORDERED: REMOVE PATCH TD (16:11)
--- NOTE | 2019-11-16 19:40 | NUR ---
RECEIVED IN DAYROOM. SITTING IN A CHAIRF WITH PEERS AT HIS SIDE. CALM AND COOPERATIVE WITH CARE AND ASSESSMENT. ENCOURAGE TO EXPRESS NEEDS. REDIRECT AND REOREINT NEEDED. CONTINUES TO SIT CALMLY IN DAYROOM. CONTINUE PLAN OF CARE.
[2019-11-16 19:52] VITALS: BP 153/68
[2019-11-17 08:36] VITALS: BP 140/41
--- NOTE | 2019-11-17 09:07 | PN ---
PATIENT:ANTONETTE MORGAN MEDICAL RECORD: [id number] LOCATION:[id number] ADMISSION DATE: 11/07/19 PROGRESS NOTE DATE OF SERVICE: 11/16/2019 SUBJECTIVE: The patient's case was discussed with staff. He has no new complaint. OBJECTIVE: The patient is denying any intent to harm himself or others. He is impaired cognitively. ASSESSMENT: Dementia. PLAN: The patient is going to be transitioned back home again. He will be followed by hospice who will be seeing him on a daily basis. This is contrary to what I had recommended, but circumstances are such that this is the situation. The smiled when told he was going to be on hospice. The patient will be transitioned home tomorrow. He will have hospice following him, so if there are behavior problems or he is in an unsafe environment, they will be able to intervene. TRANSINT:[id number] Voice Confirmation ID: [id number] DOCUMENT ID: [id number] MERLIN SAWYER MD at 0907 CC: [id number] DICTATION DATE: 11/16/19 1608 EARLY YEARS TEACHER: 11/17/19 0111 ADM IN [facility] [address] [place] [address]
--- NOTE | 2019-11-17 09:30 | NUR ---
pt laying in bed at this time. pt ate breakfast in bed. pt is alert and oriented to self only. redirect and reorient as needed. pt is compliant with meds, vitals and assessments. turn and reposition q 2 hour or as needed. pt is discharging today with hospice home. awaiting phone call for paper being signed. pt does have a ruano in place and draining clear urine. chair alarm in place and active. will cont plan of care.
--- NOTE | 2019-11-17 11:02 | NUR ---
nurse spoke with pts jose ramon elise. nurse confirmed address for pt to arrive with ems. [address] [place] [address], [place] [id number]. she did confirm. stated she was going into town to get groceries but would be at the home in the next 10 mins or so. nurse explained she would call for transfer but it would take 30 to 40 mins for EMS to arrive and then transport pt. she verbalizied understanding. will notify when EMS leaves with pt.
--- NOTE | 2019-11-17 11:10 | NUR ---
nurse requested transfer for to pt to home with hospice. 45 minutes to hour wait for transport.
--- NOTE | 2019-11-17 12:59 | NUR ---
PT TRANSPORTED VIA [facility] TO HOME WITH HOSPICE. PT TOLERATED TRANFSER FROM BED TO [facility]. PT PARR OUTPUT WAS 200CC. ALL PERSONAL BELONGINGS SENT WITH PT. HOSPICE NURSE DEZ NOTIFIED OF TRANSFER. NOTIFIED ON PT DISCHARGE WELL.
--- NOTE | 2019-11-17 13:05 | NUR ---
ALL PAPERWORK FAXED TO [facility].
== END 2019-11-17 13:08 | disposition home health service (06) | DRG 57 ==
LOC: D.PSYCH 15:32
PROVIDERS: Family Medicine; ADMIT Psychiatry & Neurology Psychiatry; ATTEND Psychiatry & Neurology Psychiatry
DX: G30.1 Alzheimer's disease with late onset (principal); F02.81 Dementia in other diseases classified elsewhere, unspecified severity, with behavioral disturbance; N39.0 Urinary tract infection, site not specified; I10 Essential (primary) hypertension; F32.9 Major depressive disorder, single episode, unspecified; N40.0 Benign prostatic hyperplasia without lower urinary tract symptoms; I25.10 Atherosclerotic heart disease of native coronary artery without angina pectoris; N28.9 Disorder of kidney and ureter, unspecified; K59.00 Constipation, unspecified; J30.9 Allergic rhinitis, unspecified; M54.5 Low back pain; R63.6 Underweight